=== PATIENT | male | born 1935 | race Caucasian/White ===

== ENCOUNTER 2019-07-31 17:36 | Inpatient (IN) | payer MEDICARE ==
[~2019-07-31] VITALS: Ht 170.2 cm; Wt 59.5 kg
[2019-07-31] MEDS: BUDESONIDE 0.5 MG/2 ML NEBU NEB SCH (08:00)
--- NOTE | 2019-07-31 17:48 | PHYS DOC ---
Adult General Chief Complaint Chief Complaint: PSYCH EVALUATION HPI HPI 84-year-old male presents for medical clearance for behavioral health admission. The patient was reported to be verbally abusive, combative, striking staff and agitated at his care facility. The patient has a history of Parkinson's and dementia. He does not express any medical complaints to me. No reported fevers. Review of Systems Review of Systems Constitutional: Denies fever or chills [] Eyes: Denies change in visual acuity, redness, or eye pain [] HENT: Denies nasal congestion or sore throat [] Respiratory: Denies cough or shortness of breath [] Cardiovascular: No additional information not addressed in HPI [] GI: Denies abdominal pain, nausea, vomiting, bloody stools or diarrhea [] : Denies dysuria or hematuria [] Musculoskeletal: Right foot pain[] Integument: Denies rash or skin lesions [] Neurologic: Denies headache, focal weakness or sensory changes [] Endocrine: Denies polyuria or polydipsia [] All other systems were reviewed and found to be within normal limits, except as documented in this note. Physical Exam Physical Exam Constitutional: Well developed, unkempt, no acute distress, non-toxic appearance. [] HENT: Normocephalic, atraumatic, bilateral external ears normal, oropharynx moist, no oral exudates, nose normal. [] Eyes: PERRLA, EOMI, conjunctiva normal, no discharge. [] Neck: Normal range of motion, no tenderness, supple, no stridor. [] Cardiovascular:Heart rate regular rhythm, no murmur [] Lungs & Thorax: Bilateral breath sounds diminished but clear to auscultation [] Abdomen: Bowel sounds normal, soft, no tenderness, no masses, no pulsatile masses. [] Skin: Warm, dry, no erythema, no rash. [] Back: No tenderness, no CVA tenderness. [] Extremities: Right foot with swelling, bruising, and tenderness dorsal side.[] Neurologic: Alert and oriented X 3, normal motor function, normal sensory function, no focal deficits noted. [] Psychologic: Affect normal, judgement normal, mood normal. : French catheter in place, slight bleeding at the meatus. [] EKG EKG Sinus rhythm, rate 83, normal axis, no ST elevations or depressions, 2 dropped QRS complexes.[] Radiology/Procedures Radiology/Procedures [] Impressions: 3 views right foot HISTORY: Bruising AP lateral oblique views right foot The visualized osseous structures appear normal. IMPRESSION: No acute findings. Electronically signed by: Rita Reynolds III, MD (07/31/2019 6:25 PM) [facility] DICTATED AND SIGNED BY: RITA REYNOLDS III, MD DATE: 07/31/19 182 CC: EDDI CALDERA DO; MARY WEN CT head without contrast PQRS statement: CT scans at this facility use dose reduction including either automated exposure control, iterative reconstructions, and /or weight based radiation dosing via mA and kV modification when appropriate to reduce radiation dose to as low as reasonably achievable. HISTORY: Fall. TECHNIQUE: Noncontrast imaging skull base to vertex was acquired. FINDINGS: Generalized brain atrophy. Ventriculomegaly likely ex vacuo enlargement from brain atrophy versus changes of normal pressure hydrocephalus. No obstructive hydrocephalus. No intracranial hemorrhage, mass or infarction. Mild cerebral periventricular white matter hypoattenuation most likely represents changes of chronic microvascular ischemic disease. Imaged orbits, mastoids, paranasal sinuses and bones are unremarkable. IMPRESSION: No acute abnormality. See discussion above. Electronically signed by: Zaira Ponce MD (07/31/2019 6:43 PM) [facility] DICTATED AND SIGNED BY: ZAIRA PONCE MD DATE: 07/31/19 184 CC: EDDI CALDERA DO; MARY WEN Course & Med Decision Making Course & Med Decision Making Pertinent Labs and Imaging studies reviewed. (See chart for details) The patient's French catheter was taped down very tightly to his left thigh. He has bleeding at the meatus. It was reported that the patient pulled his French out well-inflated a couple of days ago. This would explain the residual bleeding. I ordered an x-ray of the patient's foot. [facility] is also requests that we CT his head as the patient has a history of frequent falls. The patient's x-rays negative for fracture. It appears to be a contusion. Patient's head CT does not show acute findings. See official read for more details. His labs show a mild anemia. His other labs are unremarkable. His urinalysis is negative for infection. The patient is medically stable for behavioral health admission. [] Dragon Disclaimer Dragon Disclaimer This electronic medical record was generated, in whole or in part, using a voice recognition dictation system. Departure Departure: Impression: Primary Impression: Medical clearance for psychiatric admission Additional Impressions: Hematuria Contusion of foot, right Disposition: 09 ADMITTED INPATIENT Condition: STABLE Referrals: MARY WEN (PCP) Problem Qualifiers Additional Impressions: Hematuria Hematuria type: asymptomatic microscopic Qualified Codes: R31.21 - Asymptomatic microscopic hematuria Contusion of foot, right Encounter type: initial encounter Qualified Codes: S90.31XA - Contusion of right foot, initial encounter EDDI CALDERA DO Jul 31, 2019 17:48
[2019-07-31 18:14] LABS: BASO % 1 % (0-3); EOS # 0.1 x10^3/uL (0.0-0.7); EOS % 1 % (0-3); HEMATOCRIT 30.2 % (39.0-53.0); LYMPH # 0.5 x10^3/uL (1.0-4.8); LYMPH % 9 % (24-48); MEAN CORPUSCULAR HEMOGLOBIN 30 pg (25-35); MEAN CORPUSCULAR HGB CONC 33 g/dL (31-37); MEAN CORPUSCULAR VOLUME 91 fL (79-100); MONO # 0.5 x10^3/uL (0.0-1.1); MONO % 9 % (0-9); NEUT # 4.6 x10^3uL (1.8-7.7); NEUT % 81 % (31-73); PLATELET COUNT 176 x10^3/uL (140-400); RED BLOOD COUNT 3.34 x10^6/uL (4.30-5.70); RED CELL DISTRIBUTION WIDTH 13.8 % (11.5-14.5); WHITE BLOOD COUNT 5.7 x10^3/uL (4.0-11.0)
[2019-07-31 18:21] LABS: ALBUMIN 2.7 g/dL (3.4-5.0); ALBUMIN/GLOBULIN RATIO 0.8 (1.0-1.7); CALCIUM 8.6 mg/dL (8.5-10.1); GFR 71.5; MAGNESIUM 1.7 mg/dL (1.8-2.4); POTASSIUM 3.7 mmol/L (3.5-5.1); TOTAL BILIRUBIN 0.4 mg/dL (0.2-1.0); TOTAL PROTEIN 5.9 g/dL (6.4-8.2)
--- NOTE | 2019-07-31 18:28 | RAD ---
3 views right foot HISTORY: Bruising AP lateral oblique views right foot The visualized osseous structures appear normal. IMPRESSION: No acute findings. Electronically signed by: Sebastian Rasheed III, MD (07/31/2019 6:25 PM) [facility] [place]
[2019-07-31 18:38] LABS: BILIRUBIN,URINE SMALL (NEG); CLARITY,URINE TURBID; COLOR,URINE AMBER; GLUCOSE,URINE NEG (NEG)
[2019-07-31 18:39] LABS: BACTERIA,URINE FEW /HPF (0-FEW); NITRITE,URINE NEG (NEG); RBC,URINE >40 /HPF (0-2); UROBILINOGEN,URINE 1 mg/dL (0.2 mg/dL)
--- NOTE | 2019-07-31 18:46 | RAD ---
CT head without contrast PQRS statement: CT scans at this facility use dose reduction including either automated exposure control, iterative reconstructions, and /or weight based radiation dosing via mA and kV modification when appropriate to reduce radiation dose to as low as reasonably achievable. HISTORY: Fall. TECHNIQUE: Noncontrast imaging skull base to vertex was acquired. FINDINGS: Generalized brain atrophy. Ventriculomegaly likely ex vacuo enlargement from brain atrophy versus changes of normal pressure hydrocephalus. No obstructive hydrocephalus. No intracranial hemorrhage, mass or infarction. Mild cerebral periventricular white matter hypoattenuation most likely represents changes of chronic microvascular ischemic disease. Imaged orbits, mastoids, paranasal sinuses and bones are unremarkable. IMPRESSION: No acute abnormality. See discussion above. Electronically signed by: Brody Ponce MD (07/31/2019 6:43 PM) [facility]
[2019-07-31] MEDS ORDERED: MAGNESIUM HYDROXIDE 2,400 MG/30 ML ORAL.SUSP. PO PRN ×2 (20:30→22:00)
[2019-07-31] MEDS ORDERED: ACETAMINOPHEN 325 MG TABLET PO PRN (20:30)
[2019-07-31] MEDS ORDERED: MAG HYDROX/AL HYDROX/SIMETH 30 ML ORAL.SUSP PO PRN (20:30)
[2019-07-31] MEDS ORDERED: BUDESONIDE 0.5 MG/2 ML NEBU IH SCH (21:00)
[2019-07-31] MEDS ORDERED: BALSAM PERU TP PRN (21:00)
[2019-07-31] MEDS ORDERED: MELATONIN 3 MG TABLET PO SCH (21:00)
[2019-07-31] MEDS ORDERED: CASTOR OIL TP PRN (21:00)
[2019-07-31] MEDS ORDERED: NITROGLYCERIN SUBLINGUAL 0.4 MG BOTTLE OF 25. SL PRN (21:00)
[2019-07-31] MEDS ORDERED: ALBUTEROL SULFATE 2.5 MG/3 ML NEBU. IH PRN (21:00)
[2019-07-31] MEDS ORDERED: NON FORMULARY ITEM (Formoterol Fumarate (Perforomist) 20 MCG) IH SCH (21:00)
[2019-07-31 21:23] VITALS: BP 139/58
[2019-07-31] MEDS ORDERED: NITR0.4T22 SL (21:30)
[2019-07-31] MEDS ORDERED: CITA20TA9 PO (21:30)
[2019-07-31] MEDS ORDERED: OLAN5TAB9 PO (21:30)
[2019-07-31] MEDS ORDERED: CARB1TAB2 PO (21:30)
[2019-07-31] MEDS ORDERED: BUDE0.5A11 IH (21:30)
[2019-07-31] MEDS ORDERED: OMEP40CA45 PO (21:30)
[2019-07-31] MEDS ORDERED: CALC-157 PO (21:30)
[2019-07-31] MEDS ORDERED: MELA3TAB56 PO (21:30)
[2019-07-31] MEDS ORDERED: METO25TA4 PO (21:30)
[2019-07-31] MEDS ORDERED: TAMS0.4C97 PO (21:30)
[2019-07-31] MEDS ORDERED: BUDE3CAP15 PO (21:30)
[2019-07-31] MEDS ORDERED: MULT-460 PO (21:30)
[2019-07-31] MEDS ORDERED: POLY2500 PO (21:30)
[2019-07-31] MEDS ORDERED: ACET500T68 PO (21:30)
[2019-07-31] MEDS ORDERED: SUCR1TAB PO (21:30)
[2019-07-31] MEDS ORDERED: FISH12002 PO (21:30)
[2019-07-31] MEDS ORDERED: FORM20VI IH (21:30)
[2019-07-31] MEDS ORDERED: ASPI325T8 PO (21:30)
[2019-07-31] MEDS ORDERED: GLUC100016 PO (21:30)
[2019-07-31] MEDS ORDERED: OLAN5TAB5 PO (21:30)
[2019-07-31] MEDS ORDERED: NITR100C62 PO (21:30)
[2019-07-31] MEDS ORDERED: BALS60OI TP (21:30)
[2019-07-31] MEDS ORDERED: ALBU2.5V8 IH (21:30)
[2019-07-31] MEDS ORDERED: MAGN2400 PO (21:30)
[2019-07-31] MEDS ORDERED: LEVE500T6 PO (21:30)
[2019-08-01] MEDS: NITROFURANTOIN MONOHYD/M-CRYST 100 MG CAPSULE. PO SCH ×3 (00:14→19:43)
[2019-08-01] MEDS: OLANZapine 5 MG TABLET PO SCH ×2 (00:14→19:43)
[2019-08-01] MEDS: CARBIDOPA/LEVODOPA 25/100MG TABLET PO SCH ×5 (00:15→19:43)
[2019-08-01] MEDS: METOPROLOL TART IMMED RELEASE 25 MG TABLET PO SCH ×3 (00:15→19:43)
[2019-08-01] MEDS: SUCRALFATE 1 GM TABLET. PO SCH ×5 (00:15→19:41)
[2019-08-01] MEDS: levETIRAcetam 500 MG TABLET PO SCH ×3 (00:15→19:41)
[2019-08-01] MEDS: TAMSULOSIN 0.4 MG CAP.ER.24H. PO SCH ×2 (00:16→19:41)
[2019-08-01] MEDS: MELATONIN 3 MG TABLET PO SCH ×2 (00:16→19:43)
[2019-08-01 06:17] VITALS: BP 143/67
[2019-08-01] MEDS: BUDESONIDE 0.5 MG/2 ML NEBU NEB SCH (08:00)
[2019-08-01] MEDS ORDERED: POLYETHYLENE GLYCOL 3350 17 GM PACKET. PO PRN (09:00)
[2019-08-01] MEDS ORDERED: BUDESONIDE 3 MG CAP.ER.24H. PO SCH ×2 (09:00)
[2019-08-01] MEDS: ASPIRIN 325 MG TABLET PO SCH (09:18)
[2019-08-01] MEDS: MULTIVITAMIN with MINERAL TABLET. PO SCH (09:19)
[2019-08-01] MEDS: CITALOPRAM 20 MG TABLET. PO SCH (09:19)
[2019-08-01] MEDS: CALCIUM CARB/VIT D3 500/200 TABLET PO SCH (09:19)
[2019-08-01] MEDS: OMEGA-3 FATTY ACIDS/FISH OIL 1,000 MG CAPSULE. PO SCH (09:19)
[2019-08-01] MEDS: PANTOPRAZOLE 40 MG TABLET. PO SCH (09:20)
[2019-08-01] MEDS: GLUCOSAMINE 500 MG CAPSULE PO SCH (09:20)
[2019-08-01] MEDS: BUDESONIDE 3 MG CAP.ER.24H. PO SCH (10:55)
[2019-08-01 13:21] LABS: THYROID STIM HORMONE (TSH) 0.476 uIU/mL (0.358-3.740)
[2019-08-01 16:13] VITALS: BP 89/51
[2019-08-01 20:07] LABS: THYROXINE 4.8 ug/dL (4.5-12.0)
[2019-08-01 23:06] LABS: HEMOGLOBIN A1C 5.1 % (4.8-5.6)
[2019-08-02] MEDS: BUDESONIDE 0.5 MG/2 ML NEBU NEB SCH ×3 (01:03→21:39)
[2019-08-02 05:55] VITALS: BP 141/76
[2019-08-02] MEDS: SUCRALFATE 1 GM TABLET. PO SCH ×4 (07:55→20:15)
[2019-08-02] MEDS: CALCIUM CARB/VIT D3 500/200 TABLET PO SCH (07:55)
[2019-08-02] MEDS: levETIRAcetam 500 MG TABLET PO SCH ×2 (07:55→20:15)
[2019-08-02] MEDS: PANTOPRAZOLE 40 MG TABLET. PO SCH (07:56)
[2019-08-02] MEDS: OMEGA-3 FATTY ACIDS/FISH OIL 1,000 MG CAPSULE. PO SCH (07:56)
[2019-08-02] MEDS: METOPROLOL TART IMMED RELEASE 25 MG TABLET PO SCH ×2 (07:56→20:16)
[2019-08-02] MEDS: NITROFURANTOIN MONOHYD/M-CRYST 100 MG CAPSULE. PO SCH ×2 (07:56→20:16)
[2019-08-02] MEDS: GLUCOSAMINE 500 MG CAPSULE PO SCH (07:56)
[2019-08-02] MEDS: MULTIVITAMIN with MINERAL TABLET. PO SCH (07:56)
[2019-08-02] MEDS: CITALOPRAM 20 MG TABLET. PO SCH (07:56)
[2019-08-02] MEDS: CARBIDOPA/LEVODOPA 25/100MG TABLET PO SCH ×4 (07:56→20:16)
[2019-08-02] MEDS: ASPIRIN 325 MG TABLET PO SCH (07:56)
[2019-08-02] MEDS: BUDESONIDE 3 MG CAP.ER.24H. PO SCH (08:03)
--- NOTE | 2019-08-02 08:18 | PSYEV ---
DATE OF SERVICE: 08/01/2019 REASON FOR ADMISSION: This 84-year-old male was admitted from [facility] in [place] because being verbally abusive, combative, grabbing staff, cursing, refusing care and difficult to manage at the longterm setting. The patient apparently tried on medications with no benefit. The patient also has multiple physical problems including Parkinson's disease. HISTORY OF PRESENT ILLNESS: The patient has been having problems with increased confusion. The patient also on French catheter and trying to pull it constantly, also fluctuating mood, is combative. The patient had problems communicating, not able to verbalize his needs. On according to the staff, patient had major problems at the longterm and also he failed outpatient treatment. The patient also unable to communicate mostly word salad. The patient was sent here mainly for stabilization and medication adjustment. The patient also not taking care of his ADL and not sleeping and also not eating well. PAST PSYCHIATRIC HISTORY: None available except that he was treated with medications including Celexa 20 mg daily and also melatonin 10 mg at night. PAST MEDICAL HISTORY: The patient has a history of Parkinson's disease, chronic insomnia, COPD, dysphagia, hyperlipidemia, hypertension, falls, emphysema, asthma, GERD and also coronary artery disease. PSYCHOSOCIAL HISTORY: The patient has been a resident at [facility], unable to give much information at this time. Try to contact the family. financial services assistant will try to talk with the family. The patient's primary care physician is Dr. Alves. The patient apparently worked at [employer] from 07/10/2019 to 07/19/2019. The patient's current lab showed RBC of 3.34, hemoglobin 10, HCT 30.2, neutrophils 81. The patient's BUN 24, glucose 149. The patient's serum iron low at 16, TIBC 188, and iron saturation 9. The patient's cholesterol was 139, triglycerides 45, HDL 40, LDL 88. The patient's urinalysis showed protein, small amounts of bilirubin, 11-20 wbc's. SUBSTANCE ABUSE: The patient is unable to give much information. Apparently, there is no mention of any alcoholism from the information we gathered. MENTAL STATUS EXAMINATION: The patient appeared to be of stated age, withdrawn, unable to walk. The patient also had difficulty with communication. The patient has significant problems with the speech impediment. The patient is confused also exhibiting increased psychomotor agitation. The patient is constantly moving, thrashing, trying to pull the tubing of his phallus. The patient also did not sleep well. The patient's affect and mood showed he is irritable, kitchen, indifferent, not able to comprehend, also hearing loss. He is disoriented to time, place, person. His memory is not testable. His judgment is impaired. Insight limited. STRENGTHS: The patient apparently has been a resident at the longterm. The patient has a primary care physician. WEAKNESSES: The patient has fairly advanced dementia, most likely secondary to Parkinson's and there is no history of any CVA. The clean up person for the patient is the daughter and we will try to get more information. ADMITTING DIAGNOSES: AXIS I: 1. Dementia, most likely secondary to Parkinson's, fairly advanced with confusion, agitation and significant decline in his executive functioning. 2. Generalized anxiety disorder. 3. Impulse control disorder. AXIS II: None. AXIS III: Parkinson's disease, chronic obstructive pulmonary disease, dysphagia, hyperlipidemia, constipation, hypertension, frequent falls, emphysema, asthma, gastroesophageal reflux disease. INITIAL TREATMENT PLAN: The patient will be admitted to the unit to be followed up by the psychiatrist on daily basis and also the patient will be followed by Dr. Smallwood for his medical issues. The patient will be under observation. The patient is also on fall risk. Continue on his Celexa 20 mg daily, melatonin 10 mg at night and started on Zyprexa 5 mg at night and also 2.5 mg p.r.n. LENGTH OF STAY: 7-10 days. GARCIA HINTON MD DR: CHARISSA/eva JOB#: [id number] / [id number]
--- NOTE | 2019-08-02 12:45 | RAD ---
Bilateral lower extremity venous duplex study 08/02/2019 8:00 AM Clinical History: Bilateral lower extremity edema Comparison: None Technique: Using a combination of real time ultrasound imaging and color-flow and pulse Doppler imaging techniques along with graded compression and augmentation, duplex evaluation of the deep venous system of the both lower extremities was performed. Multiple images were obtained. Findings: There is no sonographic evidence of deep venous thrombosis involving the visualized deep venous structures of either lower extremity. Impression: No evidence of deep venous thrombosis involving either lower extremity Electronically signed by: Phu Moreira MD (08/02/2019 12:41 PM) [facility]
--- NOTE | 2019-08-02 15:45 | RAD ---
Whole body bone scan Clinical indications: Multiple falls and bruising over the right foot. TECHNIQUE: After IV infusion of 24 mCi of technetium 99m MDP, anterior and posterior planar images of the whole skeleton were performed. Dedicated planar images of both feet were performed. COMPARISON: No previous bone scan. FINDINGS: Bilateral renal function is evident. There is uptake involving the posterior medial aspect of the left ninth and 10th ribs at the costovertebral junction. There is activity seen involving the right lateral aspect of the cervical spine and typically lateral location most likely is degenerative. There is activity seen involving the lateral aspect of the lower lumbar spine in the region of L4-5 on the right side which given it's lateral location most likely is degenerative in nature as well. Degenerative activity is seen involving the sternoclavicular joints and the AC joints bilaterally. There is mild activity seen involving the lateral humeral head bilaterally which could be due to chronic impingement. There is mild activity seen involving the right proximal tibia. There is no significant activity seen involving either foot to indicate an acute fracture. IMPRESSION: Fractures of the posterior medial aspect of the left ninth and 10th ribs at the costovertebral junction. Asymmetric activity is seen involving the proximal right tibia which could be due to stress fracture. Degenerative activity as discussed above most likely is degenerative in nature. Activity seen involving the lateral aspect of the humeral head of both shoulders may be secondary to impingement. Electronically signed by: Justin Pulliam MD (08/02/2019 3:42 PM) [facility]
--- NOTE | 2019-08-02 15:46 | CONS ---
DATE OF CONSULTATION: 08/01/2019 REASON FOR CONSULTATION: Medical management. HISTORY OF PRESENT ILLNESS: The patient is an 84-year-old male patient, a resident at [facility], who was admitted on account of being verbally abusive, combative, grabbing at staff, cursing, refusing cares, agitated, all this in a background of dementia with behavioral disturbances. He was here for inpatient psychiatric stabilization. The patient is extremely hard of hearing and difficulty to communicate with. PAST MEDICAL HISTORY: Significant for Parkinson's disease, chronic obstructive pulmonary disease, dysphagia, hyperlipidemia, chronic constipation, hypertension, falls, gastroesophageal reflux disease, and heart disease. PAST SURGICAL HISTORY: Unobtainable. ALLERGIES: He is allergic to MELOXICAM, SIMVASTATIN and TAMSULOSIN. MEDICATIONS: He is currently on following medications: He is on nitrofurantoin, Macrobid 100 mg p.o. b.i.d., albuterol sulfate for ProAir 2 puffs every 6 hours, formoterol fumarate for 220 mcg per 2 mL vial 20 mcg twice a day. Tamsulosin 0.4 mg at bedtime, nitroglycerin 0.4 mg sublingually every 5 minutes x 3, metoprolol tartrate 25 mg p.o. b.i.d., aspirin 325 mg once a day, Tylenol 1000 mg p.o. q. 6 hourly, Keppra 500 mg twice a day, citalopram hydrobromide 20 mg once a day, olanzapine 5 mg at bedtime. He is on olanzapine 2.5 mg every 2 hours as needed for anxiety and agitation, carbidopa/levodopa 25/100 one tablet 4 times a day, calcium carbonate with vitamin D3 one tablet daily. He is on budesonide 0.5 mg twice a day, magnesium hydroxide for milk of magnesia 30 mL p.o. daily p.r.n. for constipation, sucralfate 1 gram 4 times a day, omeprazole 40 mg daily, Entocort 9 mg p.o. daily for COPD in a tapering course. He is on Venelex ointment 60 grams apply topically twice a day for dry skin and multivitamin with mineral 1 tablet once a day, fish oil for omega-3 fatty acid 3000 mg once a day, glucosamine sulfate 500 mg daily, melatonin 5 mg at bedtime and polyethylene glycol 17 grams daily. FAMILY HISTORY: Noncontributory. SOCIAL HISTORY: He is a resident at [facility]. I do not have any further information about him. PHYSICAL EXAMINATION: GENERAL: When I examined him, he was sitting comfortably in his wheelchair, in no apparent respiratory distress. He was awake, alert, but extremely hard of hearing and also very confused. He was pale, no jaundice, cyanosis or thyromegaly. No jugular venous distention, but marked bilateral lower limb edema with marked bruises on the right foot. VITAL SIGNS: His heart rate was 63, blood pressure was 89/51, temperature was 98.1, respiratory rate was 18 and oxygen saturation was 93%. HEAD, EYES, EARS, NOSE AND THROAT: Showed normocephalic, atraumatic. NECK: Supple. HEART: Showed normal first and second heart sounds. No gallop or murmur. CHEST: Shows central trachea, equally reduced expansion and air entry. I could not appreciate any crepitation or rhonchi. ABDOMEN: Distended, soft, nontender. No guarding or rigidity. No organomegaly. All hernial orifice intact. Bowel sounds normal. NEUROLOGIC: He is extremely hard of hearing, but all his other cranial nerves are intact. EXTREMITIES: He moves extremities without difficulty. He is apparently mostly wheelchair bound, although he is able to walk. LABORATORY DATA: On admission showed his white cell count was 5700, hemoglobin 10, hematocrit 30, MCV 91, and platelet count of 176,000 with normal manual differential. His chemistry showed a serum sodium 143, potassium 3.7, chloride 105, bicarbonate 32, anion gap of 6, BUN 24, creatinine 1, estimated GFR was 71 mL per minute. His glucose 149, calcium was 8.6. Total magnesium was 1.7. Serum iron, TIBC and iron saturation are all extremely low consistent with anemia of chronic disease. Total bilirubin, AST, ALT, alkaline phosphatase were normal. Total protein was 5.9, albumin was 2.7. His serum triglycerides were 45, total cholesterol 139, LDL was 88, VLDL was 9, HDL cholesterol was 42 and cholesterol to HDL cholesterol ratio was 3. His 25-hydroxy vitamin D was normal at 34 and TSH was also at 0.476, which is the lower limit of normal. His urinalysis showed the urine was maribeth, turbid with a pH of 6, specific gravity of more than 1.030. There was large amount of protein, negative for glucose, trace of ketones, large amount of blood, negative for nitrite. There was small amount of bilirubin, negative leukocyte esterase, more than 40 rbc's, 11-20 wbc's, and very few bacteria. His treponema pallidum antibodies were nonreactive. His CT scan of the head showed generalized brain atrophy, ventriculomegaly, likely ex-vacuo enlargement from the brain atrophy versus change of normal pressure hydrocephalus and obstructive hydrocephalus. No intracranial hemorrhage, mass, or infarction, mild cerebral periventricular white matter hypoattenuation, most likely represents changes of chronic microvascular ischemic disease. Imaged orbits, mastoids, paranasal sinuses and bones are unremarkable, has had lateral and oblique views of the right foot, which showed that the visualized osseous structures appears normal. Given the degree of swelling and ecchymosis, I will arrange for him to have bone scan to rule out any possibility of fracture. In summary, this is an 84-year-old male patient who is a resident at [facility], who was admitted on account of being verbally abusive, combative, grabbing at staff, cursing, refusing cares, agitated, all this in a background of dementia with behavioral disturbances. He has numerous medical problems including Parkinson's disease, COPD, dysphagia, hyperlipidemia, constipation, hypertension and gastroesophageal reflux disease. His both lower extremities are markedly swollen with marked bruises on the dorsum of the right foot, raising the possibility that he might have subtle fracture. His lab works seems all to be within acceptable range. I will arrange for him to have a bone scan and also bilateral venous Doppler ultrasound and decide on further management accordingly. Thank you, Dr. Fernando for allowing me to participate in the care of this patient. AD SOTO MD DR: ZIABELA/eva JOB#: [id number] / [id number]
[2019-08-02 16:56] VITALS: BP 112/56
[2019-08-02] MEDS: TAMSULOSIN 0.4 MG CAP.ER.24H. PO SCH (20:15)
[2019-08-02] MEDS: MELATONIN 3 MG TABLET PO SCH (20:16)
[2019-08-02] MEDS: OLANZapine 5 MG TABLET PO SCH (20:16)
--- NOTE | 2019-08-03 04:34 | PN ---
DATE: 08/02/2019 SUBJECTIVE: The patient was seen today, met with the staff, chart reviewed. The patient is still restless, orofacial involuntary movements, significant hearing loss and also having increased agitation and fluctuating mood. The patient also resistive to care. OBSERVATION: VITAL SIGNS: Temperature 97.6, blood pressure 141/76, pulse 79, respirations 20, O2 sat 96%. Slept only about 3 hours last night. The patient apparently has cellulitis of the right foot. The patient apparently has been receiving p.r.n. medications because of his agitation and also difficult to manage. LABORATORY DATA: The patient's lab reviewed. MEDICATIONS: The patient's current medication includes Celexa 20 mg daily p.o., melatonin 10 mg at night, olanzapine 5 mg at night. The patient is not having any side effects. ASSESSMENT: 1. Dementia, most likely secondary to Parkinson's fairly advanced with confusion, agitation and significant decline ____ functioning. 2. Generalized anxiety disorder. 3. Impulse control disorder. PLAN: Continue with the treatment. GARCIA HINTON MD DR: CHARISSA/eva JOB#: [id number] / [id number]
[2019-08-03 05:11] VITALS: BP 176/83
[2019-08-03] MEDS: GLUCOSAMINE 500 MG CAPSULE PO SCH (08:35)
[2019-08-03] MEDS: METOPROLOL TART IMMED RELEASE 25 MG TABLET PO SCH ×2 (08:35→19:46)
[2019-08-03] MEDS: levETIRAcetam 500 MG TABLET PO SCH ×2 (08:35→19:46)
[2019-08-03] MEDS: CITALOPRAM 20 MG TABLET. PO SCH (08:35)
[2019-08-03] MEDS: NITROFURANTOIN MONOHYD/M-CRYST 100 MG CAPSULE. PO SCH (08:35)
[2019-08-03] MEDS: PANTOPRAZOLE 40 MG TABLET. PO SCH (08:35)
[2019-08-03] MEDS: OMEGA-3 FATTY ACIDS/FISH OIL 1,000 MG CAPSULE. PO SCH (08:36)
[2019-08-03] MEDS: BUDESONIDE 3 MG CAP.ER.24H. PO SCH (08:36)
[2019-08-03] MEDS: ASPIRIN 325 MG TABLET PO SCH (08:36)
[2019-08-03] MEDS: CARBIDOPA/LEVODOPA 25/100MG TABLET PO SCH ×4 (08:36→19:46)
[2019-08-03] MEDS: CALCIUM CARB/VIT D3 500/200 TABLET PO SCH (08:36)
[2019-08-03] MEDS: MULTIVITAMIN with MINERAL TABLET. PO SCH (08:36)
[2019-08-03] MEDS: SUCRALFATE 1 GM TABLET. PO SCH ×4 (08:37→19:46)
[2019-08-03] MEDS ORDERED: BUDESONIDE 3 MG CAP.ER.24H. PO SCH (09:00)
[2019-08-03] MEDS: BUDESONIDE 0.5 MG/2 ML NEBU NEB SCH ×2 (10:59→19:59)
[2019-08-03 15:43] VITALS: BP 139/56
[2019-08-03] MEDS: OLANZapine 5 MG TABLET PO SCH (19:46)
[2019-08-03] MEDS: TAMSULOSIN 0.4 MG CAP.ER.24H. PO SCH (19:46)
[2019-08-03] MEDS: MELATONIN 3 MG TABLET PO SCH (19:47)
--- NOTE | 2019-08-03 22:29 | EKG ---
[address] [address] Test Date: 2019-07-31 Test Time: 18:21:20 Pat Name: TI GARZA Department: Room: [address] [place] [address] Gender: M Table Worker Packager: RAFFY : [id number] Requested By: EDDI CALDERA Order Number: [id number] Reading MD: Henry Cates MD Measurements Intervals [place] Rate: 83 P: VA: QRS: -58 QRSD: 106 T: 92 QT: 426 QTc: 501 Interpretive Statements SR CONSIDER MOBITZ TYPE 2 VERSUS TRANSIENT AVB Electronically Signed On 08-06-2019 15:39:31 CDT by Henry Cates MD
[2019-08-04 07:11] VITALS: BP 154/45
[2019-08-04] MEDS: CITALOPRAM 20 MG TABLET. PO SCH (08:10)
[2019-08-04] MEDS: GLUCOSAMINE 500 MG CAPSULE PO SCH (08:10)
[2019-08-04] MEDS: CARBIDOPA/LEVODOPA 25/100MG TABLET PO SCH ×4 (08:10→20:13)
[2019-08-04] MEDS: MULTIVITAMIN with MINERAL TABLET. PO SCH (08:10)
[2019-08-04] MEDS: ASPIRIN 325 MG TABLET PO SCH (08:10)
[2019-08-04] MEDS: levETIRAcetam 500 MG TABLET PO SCH ×2 (08:10→20:14)
[2019-08-04] MEDS: METOPROLOL TART IMMED RELEASE 25 MG TABLET PO SCH ×2 (08:10→20:13)
[2019-08-04] MEDS: PANTOPRAZOLE 40 MG TABLET. PO SCH (08:10)
[2019-08-04] MEDS: CALCIUM CARB/VIT D3 500/200 TABLET PO SCH (08:10)
[2019-08-04] MEDS: SUCRALFATE 1 GM TABLET. PO SCH ×4 (08:10→20:14)
[2019-08-04] MEDS: BUDESONIDE 3 MG CAP.ER.24H. PO SCH (08:11)
[2019-08-04] MEDS: BUDESONIDE 0.5 MG/2 ML NEBU NEB SCH (11:11)
[2019-08-04 15:40] VITALS: BP 113/67
--- NOTE | 2019-08-04 16:28 | PN ---
DATE: 08/04/2019 SUBJECTIVE: The patient was seen today, met with the staff, chart reviewed. The patient continues to have problems with increased psychomotor agitation, restlessness, trying to get off the bed and the chair. The patient is confused, difficult to redirect. The patient is also exhibiting poor impulse control, low frustration tolerance. OBSERVATION: VITAL SIGNS: Temperature 97.6, blood pressure 154/45, pulse is 70, respirations 16, and O2 sat 97%. GENERAL: Slept about 6 hours the last night. CURRENT MEDICATIONS: Include Celexa 20 mg daily, melatonin 10 mg at night, and olanzapine 5 mg at night. The patient is not showing any side effects. The patient's appetite is decreased. ASSESSMENT: Dementia, most likely secondary to Parkinson's, fairly advanced with confusion, agitation, and significant decline in his level of functioning. PLAN: To continue with the treatment. GARCIA HINTON MD DR: CHARISSA/eva JOB#: [id number] / [id number]
[2019-08-04] MEDS: OLANZapine 5 MG TABLET PO SCH (20:13)
[2019-08-04] MEDS: TAMSULOSIN 0.4 MG CAP.ER.24H. PO SCH (20:13)
[2019-08-04] MEDS: MELATONIN 3 MG TABLET PO SCH (20:14)
[2019-08-05] MEDS: BUDESONIDE 0.5 MG/2 ML NEBU NEB SCH ×2 (01:13→10:21)
[2019-08-05] MEDS: SUCRALFATE 1 GM TABLET. PO SCH ×4 (08:39→21:11)
[2019-08-05] MEDS: METOPROLOL TART IMMED RELEASE 25 MG TABLET PO SCH ×2 (08:39→21:11)
[2019-08-05] MEDS: levETIRAcetam 500 MG TABLET PO SCH ×2 (08:39→21:12)
[2019-08-05] MEDS: MULTIVITAMIN with MINERAL TABLET. PO SCH (08:39)
[2019-08-05] MEDS: ASPIRIN 325 MG TABLET PO SCH (08:39)
[2019-08-05] MEDS: CITALOPRAM 20 MG TABLET. PO SCH (08:39)
[2019-08-05] MEDS: GLUCOSAMINE 500 MG CAPSULE PO SCH (08:39)
[2019-08-05] MEDS: CARBIDOPA/LEVODOPA 25/100MG TABLET PO SCH ×4 (08:39→21:10)
[2019-08-05] MEDS: CALCIUM CARB/VIT D3 500/200 TABLET PO SCH (08:40)
[2019-08-05] MEDS: BUDESONIDE 3 MG CAP.ER.24H. PO SCH (08:40)
[2019-08-05] MEDS: PANTOPRAZOLE 40 MG TABLET. PO SCH (08:40)
[2019-08-05 16:16] VITALS: BP 134/59
[2019-08-05] MEDS: MIRTAZAPINE 7.5 MG TABLET. PO SCH (21:11)
[2019-08-05] MEDS: MELATONIN 3 MG TABLET PO SCH ×2 (21:11→21:13)
[2019-08-05] MEDS: OLANZapine 5 MG TABLET PO SCH (21:11)
[2019-08-05] MEDS: TAMSULOSIN 0.4 MG CAP.ER.24H. PO SCH (21:12)
--- NOTE | 2019-08-05 21:49 | PDOC ---
Exam Note: Anjel Note: Please also refer to the separate dictated note~for this date of service dictated separately.~Patient seen individually. Discussed the patient with Nursing staff reviewed the chart.~Reviewed interim history and current functioning. Reviewed vital signs,~Labs/ Radiology~and current medications noted below. Continue current treatment with the changes noted in the dictated addendum note Assessment: Vital Signs/I&O: Vital Signs Date Time Temp Pulse Resp B/P (MAP) Pulse Ox O2 Delivery O2 Flow Rate FiO2 08/05/19 21:11 62 134/59 08/05/19 20:50 96 Room Air 08/05/19 16:16 98.1 16 08/03/19 15:43 0.0 I & O 08/04/19 08/04/19 08/05/19 15:00 23:00 07:00 Intake Total 840 ml 580 ml Balance 840 ml 580 ml Current Medications: Meds: Current Medications Medications (Trade) Dose Ordered Sig/Gina Route PRN Reason Start Time Stop Time Status Last Admin Dose Admin Melatonin (Melatonin) 5 mg HS PO 08/05/19 19:15 08/05/19 21:13 Mirtazapine (Remeron) 7.5 mg QHS PO 08/05/19 21:00 08/05/19 21:11 I have reviewed the current psychotropics carefully including drug interactions. Risk benefit ratio favors no change other than as noted in my dictated progress note. Diagnosis: Problems: (1) Hematuria (2) Contusion of foot, right (3) Medical clearance for psychiatric admission ANEL VALLES MD Aug 05, 2019 21:49
[2019-08-06] MEDS: BUDESONIDE 0.5 MG/2 ML NEBU NEB SCH ×4 (00:15→20:14)
[2019-08-06 06:28] VITALS: BP 147/71
[2019-08-06] MEDS: METOPROLOL TART IMMED RELEASE 25 MG TABLET PO SCH ×2 (07:33→21:06)
[2019-08-06] MEDS: ASPIRIN 325 MG TABLET PO SCH (07:33)
[2019-08-06] MEDS: CITALOPRAM 20 MG TABLET. PO SCH (07:33)
[2019-08-06] MEDS: CARBIDOPA/LEVODOPA 25/100MG TABLET PO SCH ×4 (07:33→21:06)
[2019-08-06] MEDS: GLUCOSAMINE 500 MG CAPSULE PO SCH (07:33)
[2019-08-06] MEDS: levETIRAcetam 500 MG TABLET PO SCH ×2 (07:33→21:06)
[2019-08-06] MEDS: PANTOPRAZOLE 40 MG TABLET. PO SCH (07:34)
[2019-08-06] MEDS: SUCRALFATE 1 GM TABLET. PO SCH ×4 (07:34→21:07)
[2019-08-06] MEDS: CALCIUM CARB/VIT D3 500/200 TABLET PO SCH (07:34)
[2019-08-06] MEDS: MULTIVITAMIN with MINERAL TABLET. PO SCH (07:34)
[2019-08-06] MEDS: BUDESONIDE 3 MG CAP.ER.24H. PO SCH (07:35)
[2019-08-06 15:54] VITALS: BP 133/61
[2019-08-06] MEDS: QUEtiapine 25 MG TABLET. PO SCH (17:25)
--- NOTE | 2019-08-06 18:54 | PN ---
DATE: 08/05/2019 PSYCHIATRIC PROGRESS NOTE This late entry of 08/05/2019 covers elements not covered in my initial note. SUBJECTIVE: I met with the patient in the evening of 08/05/2019. Reviewed information from Dr. Resendiz who covered for me over the past 1 week. The patient slept 2 hours previous night. He is wearing a blue shirt in a wheelchair with a busy board in front of him, anxious, restless, trying to get up, more so in the afternoon, little calmer in the morning. REVIEW OF SYSTEMS: He is not forthcoming due to his dementia, but ambulation impaired, in wheelchair. No CV, , pulmonary, eye, ENT system symptoms on review. Reliability poor. MENTAL STATUS EXAM: Oriented to himself. Insight, judgment, recent and remote memory, attention, concentration, fund of knowledge poor, consistent with his diagnosis. IMPRESSION: Major neurocognitive disorder; Alzheimer's, vascular with delusion, depression, behavioral disturbance; anxiety disorder, unspecified; impulse control disorder, unspecified. PLAN: Reduce melatonin from 10 mg at bedtime down to 5 mg at bedtime. Start Remeron 7.5 mg at bedtime for his significant insomnia. Start Seroquel 12.5 mg at 5 p.m. since the agitation, restlessness increases in the evening. Maintain Celexa 20 mg a day. Rest unchanged for now. MAN Tegan VALLES MD DR: STEVE/eva JOB#: [id number] / [id number]
[2019-08-06] MEDS: OLANZapine 5 MG TABLET PO SCH (21:06)
[2019-08-06] MEDS: MIRTAZAPINE 7.5 MG TABLET. PO SCH (21:06)
[2019-08-06] MEDS: MELATONIN 3 MG TABLET PO SCH (21:06)
[2019-08-06] MEDS: TAMSULOSIN 0.4 MG CAP.ER.24H. PO SCH (21:06)
--- NOTE | 2019-08-06 21:47 | PDOC ---
Exam Note: Anjel Note: Please also refer to the separate dictated note~for this date of service dictated separately.~Patient seen individually. Discussed the patient with Nursing staff reviewed the chart.~Reviewed interim history and current functioning. Reviewed vital signs,~Labs/ Radiology~and current medications noted below. Continue current treatment with the changes noted in the dictated addendum note Assessment: Vital Signs/I&O: Vital Signs Date Time Temp Pulse Resp B/P (MAP) Pulse Ox O2 Delivery O2 Flow Rate FiO2 08/06/19 21:06 80 133/61 08/06/19 20:14 96 Room Air 08/06/19 15:54 98.0 20 08/03/19 15:43 0.0 I & O 08/05/19 08/05/19 08/06/19 14:59 22:59 06:59 Intake Total 600 ml 240 ml 120 ml Output Total 500 ml Balance 600 ml 240 ml -380 ml Current Medications: Meds: Current Medications Medications (Trade) Dose Ordered Sig/Gina Route PRN Reason Start Time Stop Time Status Last Admin Dose Admin Quetiapine Fumarate (SEROquel) 12.5 mg DAILYWSUP PO 08/06/19 17:00 08/06/19 17:25 I have reviewed the current psychotropics carefully including drug interactions. Risk benefit ratio favors no change other than as noted in my dictated progress note. Diagnosis: Problems: (1) Impulse control disorder (2) Anxiety disorder (3) Vascular dementia with behavior disturbance (4) Vascular dementia with behavioral disturbance (5) Dementia in Alzheimer's disease with delusions (6) Dementia in Alzheimer's disease with depression (7) Dementia of the Alzheimer's type with early onset with behavioral disturbance (8) Major neurocognitive disorder ANEL VALLES MD Aug 06, 2019 21:47
[2019-08-07 05:38] VITALS: BP 145/81
[2019-08-07] MEDS: BUDESONIDE 3 MG CAP.ER.24H. PO SCH (09:00)
[2019-08-07] MEDS: MULTIVITAMIN with MINERAL TABLET. PO SCH (09:01)
[2019-08-07] MEDS: SUCRALFATE 1 GM TABLET. PO SCH ×4 (09:01→21:31)
[2019-08-07] MEDS: CARBIDOPA/LEVODOPA 25/100MG TABLET PO SCH ×4 (09:01→21:32)
[2019-08-07] MEDS: ASPIRIN 325 MG TABLET PO SCH (09:01)
[2019-08-07] MEDS: GLUCOSAMINE 500 MG CAPSULE PO SCH (09:01)
[2019-08-07] MEDS: METOPROLOL TART IMMED RELEASE 25 MG TABLET PO SCH ×2 (09:01→21:32)
[2019-08-07] MEDS: PANTOPRAZOLE 40 MG TABLET. PO SCH (09:01)
[2019-08-07] MEDS: CITALOPRAM 20 MG TABLET. PO SCH (09:01)
[2019-08-07] MEDS: CALCIUM CARB/VIT D3 500/200 TABLET PO SCH (09:01)
[2019-08-07] MEDS: levETIRAcetam 500 MG TABLET PO SCH ×2 (09:01→21:32)
[2019-08-07] MEDS: BUDESONIDE 0.5 MG/2 ML NEBU NEB SCH ×2 (09:46→21:41)
[2019-08-07 16:56] VITALS: BP 135/67
[2019-08-07] MEDS: QUEtiapine 25 MG TABLET. PO SCH (17:27)
[2019-08-07] MEDS: OLANZapine 5 MG TABLET PO SCH (21:31)
[2019-08-07] MEDS: MELATONIN 3 MG TABLET PO SCH (21:31)
[2019-08-07] MEDS: TAMSULOSIN 0.4 MG CAP.ER.24H. PO SCH (21:32)
[2019-08-07] MEDS: MIRTAZAPINE 7.5 MG TABLET. PO SCH (21:32)
--- NOTE | 2019-08-07 21:39 | PDOC ---
Exam Note: Anjel Note: Please also refer to the separate dictated note~for this date of service dictated separately.~Patient seen individually. Discussed the patient with Nursing staff reviewed the chart.~Reviewed interim history and current functioning. Reviewed vital signs,~Labs/ Radiology~and current medications noted below. Continue current treatment with the changes noted in the dictated addendum note Assessment: Vital Signs/I&O: Vital Signs Date Time Temp Pulse Resp B/P (MAP) Pulse Ox O2 Delivery O2 Flow Rate FiO2 08/07/19 21:32 67 135/67 08/07/19 16:56 97.6 16 97 08/07/19 09:47 Room Air 08/03/19 15:43 0.0 I & O 08/06/19 08/06/19 08/07/19 15:00 23:00 07:00 Intake Total 840 ml 480 ml Output Total 650 ml 275 ml Balance 840 ml -170 ml -275 ml Current Medications: I have reviewed the current psychotropics carefully including drug interactions. Risk benefit ratio favors no change other than as noted in my dictated progress note. Diagnosis: Problems: (1) Anxiety disorder (2) Impulse control disorder (3) Vascular dementia with behavior disturbance (4) Vascular dementia with behavioral disturbance (5) Dementia in Alzheimer's disease with depression (6) Dementia in Alzheimer's disease with delusions (7) Dementia of the Alzheimer's type with early onset with behavioral disturbance (8) Major neurocognitive disorder ANEL VALLES MD Aug 07, 2019 21:39
--- NOTE | 2019-08-07 23:56 | PN ---
DATE: 08/06/2019 PSYCHIATRIC PROGRESS NOTE This late entry 08/06/2019 covers elements not covered in my initial note. SUBJECTIVE: I met with the patient evening of 08/06/2019. The patient slept 6-1/4 hours previous night. He is oriented to himself, agitated, yelling at times, pulled his dressing off the left toe, received Zyprexa Zydis. REVIEW OF SYSTEMS: Ambulation impaired, in wheelchair. No CV, , pulmonary, eye, ENT system symptoms on review. Reliability poor. MENTAL STATUS EXAM: Oriented to himself. Insight, judgment, recent and remote memory, attention, concentration, fund of knowledge poor, consistent with his diagnosis mentioned in my initial note. PLAN: No change from initial note. We have added Seroquel and Remeron at night for insomnia, reduce the melatonin to 5 mg at bedtime. Maintain Celexa for now. Adjust further as clinically indicated. MAN Tegan VALLES MD DR: STEVE/eva JOB#: [id number] / [id number]
[2019-08-08 06:18] VITALS: BP 107/64
[2019-08-08] MEDS: GLUCOSAMINE 500 MG CAPSULE PO SCH (09:22)
[2019-08-08] MEDS: CALCIUM CARB/VIT D3 500/200 TABLET PO SCH (09:22)
[2019-08-08] MEDS: levETIRAcetam 500 MG TABLET PO SCH ×2 (09:22→20:03)
[2019-08-08] MEDS: ASPIRIN 325 MG TABLET PO SCH (09:22)
[2019-08-08] MEDS: CITALOPRAM 20 MG TABLET. PO SCH (09:22)
[2019-08-08] MEDS: PANTOPRAZOLE 40 MG TABLET. PO SCH (09:22)
[2019-08-08] MEDS: MULTIVITAMIN with MINERAL TABLET. PO SCH (09:23)
[2019-08-08] MEDS: BUDESONIDE 3 MG CAP.ER.24H. PO SCH (09:23)
[2019-08-08] MEDS: SUCRALFATE 1 GM TABLET. PO SCH ×4 (09:23→20:03)
[2019-08-08] MEDS: CARBIDOPA/LEVODOPA 25/100MG TABLET PO SCH ×4 (09:23→20:04)
[2019-08-08] MEDS: METOPROLOL TART IMMED RELEASE 25 MG TABLET PO SCH ×2 (09:23→20:04)
[2019-08-08] MEDS: BUDESONIDE 0.5 MG/2 ML NEBU NEB SCH ×2 (09:45→20:10)
[2019-08-08 16:17] VITALS: BP 105/54
[2019-08-08] MEDS: QUEtiapine 25 MG TABLET. PO SCH (17:19)
[2019-08-08] MEDS: TAMSULOSIN 0.4 MG CAP.ER.24H. PO SCH (20:03)
[2019-08-08] MEDS: MIRTAZAPINE 7.5 MG TABLET. PO SCH (20:03)
[2019-08-08] MEDS: MELATONIN 3 MG TABLET PO SCH (20:04)
[2019-08-08] MEDS: OLANZapine 5 MG TABLET PO SCH (20:04)
--- NOTE | 2019-08-08 21:07 | PDOC ---
Exam Note: Anjel Note: Please also refer to the separate dictated note~for this date of service dictated separately.~Patient seen individually. Discussed the patient with Nursing staff reviewed the chart.~Reviewed interim history and current functioning. Reviewed vital signs,~Labs/ Radiology~and current medications noted below. Continue current treatment with the changes noted in the dictated addendum note Assessment: Vital Signs/I&O: Vital Signs Date Time Temp Pulse Resp B/P (MAP) Pulse Ox O2 Delivery O2 Flow Rate FiO2 08/08/19 20:15 95 Room Air 08/08/19 20:04 97 105/54 08/08/19 16:17 97.0 16 08/03/19 15:43 0.0 I & O 08/07/19 08/07/19 08/08/19 15:00 23:00 07:00 Intake Total 600 ml 360 ml 100 ml Output Total 600 ml Balance 600 ml 360 ml -500 ml Current Medications: I have reviewed the current psychotropics carefully including drug interactions. Risk benefit ratio favors no change other than as noted in my dictated progress note. Diagnosis: Problems: (1) Anxiety disorder (2) Impulse control disorder (3) Vascular dementia with behavior disturbance (4) Vascular dementia with behavioral disturbance (5) Dementia in Alzheimer's disease with depression (6) Dementia in Alzheimer's disease with delusions (7) Dementia of the Alzheimer's type with early onset with behavioral disturbance (8) Major neurocognitive disorder ANEL VALLES MD Aug 08, 2019 21:07
[2019-08-09] MEDS ORDERED: traZODone 50 MG TABLET. PO PRN (00:15)
[2019-08-09 06:23] VITALS: BP 118/49
[2019-08-09] MEDS: CITALOPRAM 20 MG TABLET. PO SCH (08:45)
[2019-08-09] MEDS: CALCIUM CARB/VIT D3 500/200 TABLET PO SCH (08:45)
[2019-08-09] MEDS: MULTIVITAMIN with MINERAL TABLET. PO SCH (08:46)
[2019-08-09] MEDS: ASPIRIN 325 MG TABLET PO SCH (08:46)
[2019-08-09] MEDS: SUCRALFATE 1 GM TABLET. PO SCH ×4 (08:46→20:45)
[2019-08-09] MEDS: levETIRAcetam 500 MG TABLET PO SCH ×2 (08:46→20:44)
[2019-08-09] MEDS: CARBIDOPA/LEVODOPA 25/100MG TABLET PO SCH ×4 (08:46→20:45)
[2019-08-09] MEDS: GLUCOSAMINE 500 MG CAPSULE PO SCH (08:46)
[2019-08-09] MEDS: PANTOPRAZOLE 40 MG TABLET. PO SCH (08:46)
[2019-08-09] MEDS: BUDESONIDE 3 MG CAP.ER.24H. PO SCH (08:47)
[2019-08-09] MEDS: METOPROLOL TART IMMED RELEASE 25 MG TABLET PO SCH ×2 (08:47→20:45)
[2019-08-09] MEDS: RIVASTIGMINE 4.6MG PATCH. TD SCH (08:47)
[2019-08-09] MEDS: BUDESONIDE 0.5 MG/2 ML NEBU NEB SCH (10:48)
[2019-08-09 14:24] LABS: BASO % 0 % (0-3); EOS % 0 % (0-3); HEMATOCRIT 28.4 % (39.0-53.0); HEMOGLOBIN 9.5 g/dL (13.0-17.5); LYMPH # 0.4 x10^3/uL (1.0-4.8); LYMPH % 4 % (24-48); MEAN CORPUSCULAR HEMOGLOBIN 30 pg (25-35); MEAN CORPUSCULAR HGB CONC 33 g/dL (31-37); MEAN CORPUSCULAR VOLUME 89 fL (79-100); MONO # 0.9 x10^3/uL (0.0-1.1); MONO % 10 % (0-9); NEUT # 7.7 x10^3uL (1.8-7.7); NEUT % 85 % (31-73); PLATELET COUNT 194 x10^3/uL (140-400); RED BLOOD COUNT 3.18 x10^6/uL (4.30-5.70); RED CELL DISTRIBUTION WIDTH 13.5 % (11.5-14.5); WHITE BLOOD COUNT 9.1 x10^3/uL (4.0-11.0)
[2019-08-09 14:38] LABS: ALBUMIN 2.6 g/dL (3.4-5.0); ALBUMIN/GLOBULIN RATIO 0.7 (1.0-1.7); CALCIUM 8.7 mg/dL (8.5-10.1); CREATININE 1.1 mg/dL (0.7-1.3); GFR 64.1; POTASSIUM 3.5 mmol/L (3.5-5.1); TOTAL BILIRUBIN 0.6 mg/dL (0.2-1.0); TOTAL PROTEIN 6.1 g/dL (6.4-8.2)
[2019-08-09 15:49] VITALS: BP 134/61
[2019-08-09] MEDS: QUEtiapine 25 MG TABLET. PO SCH (17:35)
--- NOTE | 2019-08-09 18:18 | PN ---
DATE: 08/07/2019 PSYCHIATRIC PROGRESS NOTE This late entry 08/07/2019 covers elements not covered in my initial note. SUBJECTIVE: I met with the patient evening of 08/07/2019. Per Mer MORFIN, patient slept 6-1/4 hours previous night. He was up at night. Urine C and S is negative. Complains of being tired, but not aggressive. REVIEW OF SYSTEMS: Ambulation impaired, in wheelchair, Broda chair. No CV, , pulmonary, eye, ENT system symptoms on review. Reliability poor. MENTAL STATUS EXAM: Oriented to himself. Insight, judgment, recent and remote memory, attention, concentration, fund of knowledge poor, consistent with his diagnosis mentioned in my initial note. PLAN: No change from initial note. MAN Tegan VALLES MD DR: STEVE/eva JOB#: [id number] / [id number]
[2019-08-09] MEDS: TAMSULOSIN 0.4 MG CAP.ER.24H. PO SCH (20:45)
[2019-08-09] MEDS: OLANZapine 5 MG TABLET PO SCH (20:45)
[2019-08-09] MEDS: MELATONIN 3 MG TABLET PO SCH (20:45)
[2019-08-09] MEDS: traZODone 50 MG TABLET. PO SCH (20:45)
[2019-08-09] MEDS: MIRTAZAPINE 15 MG TABLET PO SCH (20:46)
--- NOTE | 2019-08-09 21:34 | PDOC ---
Exam Note: Anjel Note: Please also refer to the separate dictated note~for this date of service dictated separately.~Patient seen individually. Discussed the patient with Nursing staff reviewed the chart.~Reviewed interim history and current functioning. Reviewed vital signs,~Labs/ Radiology~and current medications noted below. Continue current treatment with the changes noted in the dictated addendum note Assessment: Vital Signs/I&O: Vital Signs Date Time Temp Pulse Resp B/P (MAP) Pulse Ox O2 Delivery O2 Flow Rate FiO2 08/09/19 20:45 88 134/61 08/09/19 15:49 97.9 20 98 08/09/19 10:48 Room Air 08/03/19 15:43 0.0 I & O 08/08/19 08/08/19 08/09/19 15:00 23:00 07:00 Intake Total 240 ml 240 ml 240 ml Balance 240 ml 240 ml 240 ml Labs: Laboratory Tests Test 08/09/19 14:20 White Blood Count 9.1 x10^3/uL (4.0-11.0) Red Blood Count 3.18 x10^6/uL (4.30-5.70) L Hemoglobin 9.5 g/dL (13.0-17.5) L Hematocrit 28.4 % (39.0-53.0) L Mean Corpuscular Volume 89 fL (79-100) Mean Corpuscular Hemoglobin 30 pg (25-35) Mean Corpuscular Hemoglobin Concent 33 g/dL (31-37) Red Cell Distribution Width 13.5 % (11.5-14.5) Platelet Count 194 x10^3/uL (140-400) Neutrophils (%) (Auto) 85 % (31-73) H Lymphocytes (%) (Auto) 4 % (24-48) L Monocytes (%) (Auto) 10 % (0-9) H Eosinophils (%) (Auto) 0 % (0-3) Basophils (%) (Auto) 0 % (0-3) Neutrophils # (Auto) 7.7 x10^3uL (1.8-7.7) Lymphocytes # (Auto) 0.4 x10^3/uL (1.0-4.8) L Monocytes # (Auto) 0.9 x10^3/uL (0.0-1.1) Eosinophils # (Auto) 0.0 x10^3/uL (0.0-0.7) Basophils # (Auto) 0.0 x10^3/uL (0.0-0.2) Sodium Level 142 mmol/L (136-145) Potassium Level 3.5 mmol/L (3.5-5.1) Chloride Level 107 mmol/L (98-107) Carbon Dioxide Level 30 mmol/L (21-32) Anion Gap 5 (6-14) L Blood Urea Nitrogen 33 mg/dL (8-26) H Creatinine 1.1 mg/dL (0.7-1.3) Estimated GFR (Cockcroft-Gault) 64.1 BUN/Creatinine Ratio 30 (6-20) H Glucose Level 149 mg/dL (70-99) H Calcium Level 8.7 mg/dL (8.5-10.1) Total Bilirubin 0.6 mg/dL (0.2-1.0) Aspartate Amino Transferase (AST) 22 U/L (15-37) Alanine Aminotransferase (ALT) 20 U/L (16-63) Alkaline Phosphatase 90 U/L (46-116) Total Protein 6.1 g/dL (6.4-8.2) L Albumin 2.6 g/dL (3.4-5.0) L Albumin/Globulin Ratio 0.7 (1.0-1.7) L Current Medications: Meds: Current Medications Medications (Trade) Dose Ordered Sig/Gina Route PRN Reason Start Time Stop Time Status Last Admin Dose Admin Rivastigmine (Exelon) 1 patch DAILY TD 08/09/19 09:00 08/11/19 09:01 08/09/19 08:47 Trazodone HCl (Desyrel) 50 mg QHS PO 08/09/19 21:00 08/09/19 20:45 I have reviewed the current psychotropics carefully including drug interactions. Risk benefit ratio favors no change other than as noted in my dictated progress note. 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
--- NOTE | 2019-08-09 23:01 | PN ---
DATE: 08/08/2019 PSYCHIATRIC PROGRESS NOTE This late entry 08/08/2019 covers the elements not covered in my initial note. SUBJECTIVE: The patient was staffed at a treatment team meeting with the entire team in the morning and his daughter, Cecily, attended the treatment team meeting. Reviewed the patient's history, progress, medications, discharge plans. The patient is resistive, agitated at times, takes his meds crushed in pudding. REVIEW OF SYSTEMS: Ambulation impaired, in wheelchair. No CV, , pulmonary, eye, ENT system symptoms on review. Reliability poor. MENTAL STATUS EXAM: Oriented to himself. Insight, judgment, recent and remote memory, attention, concentration, fund of knowledge poor, consistent with his diagnosis mentioned in my initial note. The patient also had some vacillation in his cognition within the same day along with intermittent psychotic symptoms. PLAN: Continue psychotropics from initial note. Start Exelon patch 4.6 mg a day for 3 days, then 9.5 mg a day for his questionable symptoms suggestive of Lewy body in addition to the other dementias, though it is certainly not very clear. Adjust further as clinically indicated. MAN Tegan VALLES MD DR: STEVE/eva JOB#: [id number] / [id number]
[2019-08-10] MEDS: BUDESONIDE 0.5 MG/2 ML NEBU NEB SCH ×3 (00:31→20:25)
[2019-08-10] MEDS: ALBUTEROL SULFATE 2.5 MG/3 ML NEBU. NEB PRN (01:53)
[2019-08-10 06:10] VITALS: BP 115/50
[2019-08-10] MEDS: GLUCOSAMINE 500 MG CAPSULE PO SCH (07:44)
[2019-08-10] MEDS: PANTOPRAZOLE 40 MG TABLET. PO SCH (07:44)
[2019-08-10] MEDS: CALCIUM CARB/VIT D3 500/200 TABLET PO SCH (07:44)
[2019-08-10] MEDS: MULTIVITAMIN with MINERAL TABLET. PO SCH (07:45)
[2019-08-10] MEDS: ASPIRIN 325 MG TABLET PO SCH (07:45)
[2019-08-10] MEDS: RIVASTIGMINE 4.6MG PATCH. TD SCH (07:45)
[2019-08-10] MEDS: CARBIDOPA/LEVODOPA 25/100MG TABLET PO SCH ×4 (07:45→19:36)
[2019-08-10] MEDS: CITALOPRAM 20 MG TABLET. PO SCH (07:45)
[2019-08-10] MEDS: SUCRALFATE 1 GM TABLET. PO SCH ×4 (07:45→19:36)
[2019-08-10] MEDS: METOPROLOL TART IMMED RELEASE 25 MG TABLET PO SCH ×2 (07:46→19:36)
[2019-08-10] MEDS: levETIRAcetam 500 MG TABLET PO SCH ×2 (07:46→19:36)
[2019-08-10] MEDS: BUDESONIDE 3 MG CAP.ER.24H. PO SCH (07:46)
--- NOTE | 2019-08-10 10:50 | RAD ---
EXAM: Chest, single view. HISTORY: Cough. COMPARISON: None. FINDINGS: A frontal view of the chest obtained. There is coarse diffuse increased interstitial opacity. There is superimposed left retrocardiac opacity. There is no pleural effusion or pneumothorax. There are calcified granulomas. The heart is normal in size for portable technique. There is a nodular opacity with central lucency within the right mid thorax measuring 1.8 cm. IMPRESSION: 1. Coarse diffuse increased interstitial opacity likely due to chronic interstitial change. There is suspected superimposed left lower lobe infiltrate. 2. 1.8 cm nodular opacity with central lucency within the right mid thorax. The possibility of neoplasm is not excluded. This can be better characterized with a CT. Electronically signed by: Ashley Pollack MD (08/10/2019 10:47 AM) [facility]
[2019-08-10 16:39] VITALS: BP 128/64
[2019-08-10] MEDS: QUEtiapine 25 MG TABLET. PO SCH (17:00)
[2019-08-10] MEDS: TAMSULOSIN 0.4 MG CAP.ER.24H. PO SCH (19:35)
[2019-08-10] MEDS: traZODone 50 MG TABLET. PO SCH (19:36)
[2019-08-10] MEDS: MIRTAZAPINE 15 MG TABLET PO SCH (19:36)
[2019-08-10] MEDS: OLANZapine 5 MG TABLET PO SCH (19:36)
[2019-08-10] MEDS: MELATONIN 3 MG TABLET PO SCH (19:37)
--- NOTE | 2019-08-10 23:22 | PDOC ---
Exam Note: Anjel Note: Please also refer to the separate dictated note~for this date of service dictated separately.~Patient seen individually. Discussed the patient with Nursing staff reviewed the chart.~Reviewed interim history and current functioning. Reviewed vital signs,~Labs/ Radiology~and current medications noted below. Continue current treatment with the changes noted in the dictated addendum note Assessment: Vital Signs/I&O: Vital Signs Date Time Temp Pulse Resp B/P (MAP) Pulse Ox O2 Delivery O2 Flow Rate FiO2 08/10/19 20:25 95 Room Air 08/10/19 19:36 85 128/64 08/10/19 16:39 97.3 20 I & O 08/09/19 08/09/19 08/10/19 15:00 23:00 07:00 Intake Total 960 ml 240 ml 240 ml Output Total 1400 ml 400 ml Balance 960 ml -1160 ml -160 ml Current Medications: I have reviewed the current psychotropics carefully including drug interactions. Risk benefit ratio favors no change other than as noted in my dictated progress note. Diagnosis: Problems: (1) Anxiety disorder (2) Impulse control disorder (3) Vascular dementia with behavior disturbance (4) Vascular dementia with behavioral disturbance (5) Dementia in Alzheimer's disease with depression (6) Dementia in Alzheimer's disease with delusions (7) Dementia of the Alzheimer's type with early onset with behavioral disturbance (8) Major neurocognitive disorder ANEL VALLES MD Aug 10, 2019 23:22
[2019-08-11] MEDS: ACETAMINOPHEN 500 MG TABLET PO PRN (04:59)
[2019-08-11 05:32] LABS: BASO % 0 % (0-3); EOS # 0.1 x10^3/uL (0.0-0.7); EOS % 1 % (0-3); HEMATOCRIT 27.1 % (39.0-53.0); HEMOGLOBIN 9.1 g/dL (13.0-17.5); LYMPH # 0.4 x10^3/uL (1.0-4.8); LYMPH % 4 % (24-48); MEAN CORPUSCULAR HEMOGLOBIN 30 pg (25-35); MEAN CORPUSCULAR HGB CONC 34 g/dL (31-37); MEAN CORPUSCULAR VOLUME 88 fL (79-100); MONO # 0.9 x10^3/uL (0.0-1.1); MONO % 11 % (0-9); NEUT % 84 % (31-73); PLATELET COUNT 201 x10^3/uL (140-400); RED BLOOD COUNT 3.06 x10^6/uL (4.30-5.70); RED CELL DISTRIBUTION WIDTH 13.4 % (11.5-14.5); WHITE BLOOD COUNT 8.3 x10^3/uL (4.0-11.0)
[2019-08-11 05:38] VITALS: BP 144/62
[2019-08-11 05:43] LABS: ALBUMIN 2.4 g/dL (3.4-5.0); ALBUMIN/GLOBULIN RATIO 0.7 (1.0-1.7); CALCIUM 8.9 mg/dL (8.5-10.1); GFR 71.5; POTASSIUM 3.6 mmol/L (3.5-5.1); TOTAL BILIRUBIN 0.8 mg/dL (0.2-1.0); TOTAL PROTEIN 5.9 g/dL (6.4-8.2)
[2019-08-11] MEDS: RIVASTIGMINE 4.6MG PATCH. TD SCH (07:57)
[2019-08-11] MEDS: ASPIRIN 325 MG TABLET PO SCH (07:57)
[2019-08-11] MEDS: levETIRAcetam 500 MG TABLET PO SCH ×2 (07:57→20:14)
[2019-08-11] MEDS: CARBIDOPA/LEVODOPA 25/100MG TABLET PO SCH ×4 (07:57→20:14)
[2019-08-11] MEDS: MULTIVITAMIN with MINERAL TABLET. PO SCH (07:57)
[2019-08-11] MEDS: GLUCOSAMINE 500 MG CAPSULE PO SCH (07:58)
[2019-08-11] MEDS: PANTOPRAZOLE 40 MG TABLET. PO SCH (07:58)
[2019-08-11] MEDS: CITALOPRAM 20 MG TABLET. PO SCH (07:58)
[2019-08-11] MEDS: METOPROLOL TART IMMED RELEASE 25 MG TABLET PO SCH ×2 (07:58→20:15)
[2019-08-11] MEDS: BUDESONIDE 3 MG CAP.ER.24H. PO SCH (07:58)
[2019-08-11] MEDS: SUCRALFATE 1 GM TABLET. PO SCH ×4 (07:58→20:13)
[2019-08-11] MEDS: CALCIUM CARB/VIT D3 500/200 TABLET PO SCH (07:59)
[2019-08-11] MEDS ORDERED: IOHEXOL 350 MG/ML 100 ML VIAL. IV ONE (10:00)
[2019-08-11] MEDS: BUDESONIDE 0.5 MG/2 ML NEBU NEB SCH ×2 (10:29→20:00)
[2019-08-11 10:40] LABS: BILIRUBIN,URINE NEG (NEG); CLARITY,URINE TURBID; COLOR,URINE YELLOW; GLUCOSE,URINE NEG (NEG); NITRITE,URINE POS (NEG); UROBILINOGEN,URINE 1 mg/dL (0.2 mg/dL)
[2019-08-11 10:41] LABS: BACTERIA,URINE MOD /HPF (0-FEW); SQUAMOUS EPITHELIAL CELL,UR FEW /LPF; WBC,URINE >40 /HPF (0-4)
--- NOTE | 2019-08-11 10:51 | RAD ---
EXAM: CT angiography of the chest with intravenous contrast. HISTORY: Abnormal chest x-ray. TECHNIQUE: Computed tomographic images of the chest were obtained following the administration of 90 cc Omnipaque 350 intravenous contrast according to angiography protocol. Multiplanar reformatting was performed and 3-dimensional maximum intensity projection images were obtained. COMPARISON: None. FINDINGS: The exam is extremely limited due to respiratory motion no central pulmonary embolism is seen. The distal pulmonary arteries are not well assessed. There is cardiomegaly. There is coronary artery atherosclerosis. There is calcification of the mitral valve annulus and aortic valve. There is aortic and aortic branch vessel atherosclerosis. No dissection or aneurysm is seen. There is a trace left pleural effusion. There are prominent bilateral hilar lymph nodes. There is partially consolidated left lower lobe infiltrate and there is bilateral lower lobe predominant bronchial wall thickening likely due to bronchitis. There is right basilar interstitial infiltrate or atelectasis. There is lingular atelectasis or scarring. There are peripheral tiny groundglass and nodular opacities within the bilateral upper lobes which may be postinfectious or postinflammatory in etiology. There is mild emphysema. There are calcified granulomas. Evaluation of the upper abdomen demonstrates no acute finding. There are degenerative changes throughout the spine. No suspicious osseous lesion is seen. IMPRESSION: 1. Significantly limited evaluation for pulmonary embolism due to respiratory motion. No central embolism is seen. However, the distal pulmonary arteries are not well assessed. 2. Partially consolidated left lower lobe pneumonia with trace effusion. Follow-up to confirm resolution. 3. Scattered tiny peripheral predominant groundglass and nodular opacities within the bilateral upper lobes, possibly postinfectious or postinflammatory in etiology. Attention the time of follow-up is recommended. 4. Cardiomegaly with coronary artery and aortic atherosclerosis. There is calcification of the aortic valve. 5. Bilateral central bronchial wall thickening consistent with bronchitis. 6. Emphysema. 7. No suspicious correlate for nodularity with central lucency within the right lung on the recent chest radiograph, likely artifactual. Electronically signed by: Ashley Pollack MD (08/11/2019 10:49 AM) [facility]
[2019-08-11 16:13] VITALS: BP 92/46
[2019-08-11] MEDS: QUEtiapine 25 MG TABLET. PO SCH (16:21)
[2019-08-11] MEDS: MIRTAZAPINE 15 MG TABLET PO SCH (20:13)
[2019-08-11] MEDS: traZODone 50 MG TABLET. PO SCH (20:14)
[2019-08-11] MEDS: OLANZapine 5 MG TABLET PO SCH (20:14)
[2019-08-11] MEDS: TAMSULOSIN 0.4 MG CAP.ER.24H. PO SCH (20:14)
[2019-08-11] MEDS: CEFDINIR 300 MG CAPSULE PO SCH (20:15)
[2019-08-11] MEDS: MELATONIN 3 MG TABLET PO SCH (20:16)
--- NOTE | 2019-08-11 21:49 | PDOC ---
Exam Note: Anjel Note: Please also refer to the separate dictated note~for this date of service dictated separately.~Patient seen individually. Discussed the patient with Nursing staff reviewed the chart.~Reviewed interim history and current functioning. Reviewed vital signs,~Labs/ Radiology~and current medications noted below. Continue current treatment with the changes noted in the dictated addendum note Assessment: Vital Signs/I&O: Vital Signs Date Time Temp Pulse Resp B/P (MAP) Pulse Ox O2 Delivery O2 Flow Rate FiO2 08/11/19 20:20 95 Room Air 08/11/19 20:15 86 110/76 08/11/19 16:13 98.4 20 I & O 08/10/19 08/10/19 08/11/19 15:00 23:00 07:00 Intake Total 240 ml 240 ml Output Total 600 ml Balance 240 ml -360 ml Labs: Laboratory Tests Test 08/11/19 05:20 08/11/19 10:10 White Blood Count 8.3 x10^3/uL (4.0-11.0) Red Blood Count 3.06 x10^6/uL (4.30-5.70) L Hemoglobin 9.1 g/dL (13.0-17.5) L Hematocrit 27.1 % (39.0-53.0) L Mean Corpuscular Volume 88 fL (79-100) Mean Corpuscular Hemoglobin 30 pg (25-35) Mean Corpuscular Hemoglobin Concent 34 g/dL (31-37) Red Cell Distribution Width 13.4 % (11.5-14.5) Platelet Count 201 x10^3/uL (140-400) Neutrophils (%) (Auto) 84 % (31-73) H Lymphocytes (%) (Auto) 4 % (24-48) L Monocytes (%) (Auto) 11 % (0-9) H Eosinophils (%) (Auto) 1 % (0-3) Basophils (%) (Auto) 0 % (0-3) Neutrophils # (Auto) 7.0 x10^3uL (1.8-7.7) Lymphocytes # (Auto) 0.4 x10^3/uL (1.0-4.8) L Monocytes # (Auto) 0.9 x10^3/uL (0.0-1.1) Eosinophils # (Auto) 0.1 x10^3/uL (0.0-0.7) Basophils # (Auto) 0.0 x10^3/uL (0.0-0.2) Sodium Level 148 mmol/L (136-145) H Potassium Level 3.6 mmol/L (3.5-5.1) Chloride Level 111 mmol/L (98-107) H Carbon Dioxide Level 31 mmol/L (21-32) Anion Gap 6 (6-14) Blood Urea Nitrogen 29 mg/dL (8-26) H Creatinine 1.0 mg/dL (0.7-1.3) Estimated GFR (Cockcroft-Gault) 71.5 BUN/Creatinine Ratio 29 (6-20) H Glucose Level 111 mg/dL (70-99) H Lactic Acid Level 0.7 mmol/L (0.4-2.0) Calcium Level 8.9 mg/dL (8.5-10.1) Total Bilirubin 0.8 mg/dL (0.2-1.0) Aspartate Amino Transferase (AST) 24 U/L (15-37) Alanine Aminotransferase (ALT) 24 U/L (16-63) Alkaline Phosphatase 94 U/L (46-116) Total Protein 5.9 g/dL (6.4-8.2) L Albumin 2.4 g/dL (3.4-5.0) L Albumin/Globulin Ratio 0.7 (1.0-1.7) L Urine Collection Type U cath Urine Color Yellow Urine Clarity Turbid Urine pH 7.0 Urine Specific [place] 1.025 Urine Protein >100 mg/dl (NEG-TRACE) Urine Glucose (UA) Neg mg/dL (NEG) Urine Ketones (Stick) Neg mg/dL (NEG) Urine Blood Large (NEG) Urine Nitrite Pos (NEG) Urine Bilirubin Neg (NEG) Urine Urobilinogen Dipstick 1 mg/dL (0.2 mg/dL) Urine Leukocyte Esterase Small (NEG) Urine RBC 11-20 /HPF (0-2) Urine WBC >40 /HPF (0-4) Urine Squamous Epithelial Cells Few /LPF Urine Transitional Epithelial Cells Occ /LPF Urine Bacteria Mod /HPF (0-FEW) Current Medications: Meds: Current Medications Medications (Trade) Dose Ordered Sig/Gina Route PRN Reason Start Time Stop Time Status Last Admin Dose Admin Melatonin (Melatonin) 3 mg QHS PO 08/11/19 21:00 08/11/19 20:16 Iohexol (Omnipaque 350 Mg/ml) 100 ml 1X ONCE IV 08/11/19 10:00 08/11/19 10:01 DC 08/11/19 10:22 Cefdinir (Omnicef) 300 mg BID PO 08/11/19 21:00 08/11/19 20:15 I have reviewed the current psychotropics carefully including drug interactions. Risk benefit ratio favors no change other than as noted in my dictated progress note. Diagnosis: Problems: (1) Anxiety disorder (2) Impulse control disorder (3) Vascular dementia with behavior disturbance (4) Vascular dementia with behavioral disturbance (5) Dementia in Alzheimer's disease with depression (6) Dementia in Alzheimer's disease with delusions (7) Dementia of the Alzheimer's type with early onset with behavioral disturbance (8) Major neurocognitive disorder ANEL VALLES MD Aug 11, 2019 21:49
[2019-08-12] MEDS: ACETAMINOPHEN 500 MG TABLET PO PRN (03:59)
[2019-08-12 04:06] VITALS: BP 155/73
[2019-08-12 06:05] VITALS: BP 143/64
--- NOTE | 2019-08-12 06:32 | PN ---
DATE: 08/09/2019 PSYCHIATRIC PROGRESS NOTE This late entry 08/09/2019 covers elements not covered in my initial note. SUBJECTIVE: I met with the patient in the evening of 08/09/2019. The patient slept 3-1/4 hours previous night per NAVJOT Stout. He takes meds crushed in pudding, remains at the day room, confused. REVIEW OF SYSTEMS: No CV, , pulmonary, eye, ENT system symptoms on review. Reliability poor. Gait unsteady, in wheelchair. MENTAL STATUS EXAM: Oriented to himself. Insight, judgment, recent and remote memory, attention, concentration, fund of knowledge poor, consistent with his diagnosis mentioned in my initial note. PLAN: No change from initial note. MAN Tegan VALLES MD DR: STEVE/eva JOB#: [id number] / [id number]
[2019-08-12] MEDS: CITALOPRAM 20 MG TABLET. PO SCH (08:48)
[2019-08-12] MEDS: SUCRALFATE 1 GM TABLET. PO SCH ×4 (08:48→19:42)
[2019-08-12] MEDS: CARBIDOPA/LEVODOPA 25/100MG TABLET PO SCH ×4 (08:48→19:42)
[2019-08-12] MEDS: MULTIVITAMIN with MINERAL TABLET. PO SCH (08:48)
[2019-08-12] MEDS: CEFDINIR 300 MG CAPSULE PO SCH ×2 (08:48→19:42)
[2019-08-12] MEDS: levETIRAcetam 500 MG TABLET PO SCH ×2 (08:48→19:42)
[2019-08-12] MEDS: ASPIRIN 325 MG TABLET PO SCH (08:48)
[2019-08-12] MEDS: GLUCOSAMINE 500 MG CAPSULE PO SCH (08:48)
[2019-08-12] MEDS: CALCIUM CARB/VIT D3 500/200 TABLET PO SCH (08:48)
[2019-08-12] MEDS: PANTOPRAZOLE 40 MG TABLET. PO SCH (08:49)
[2019-08-12] MEDS: METOPROLOL TART IMMED RELEASE 25 MG TABLET PO SCH ×2 (08:49→19:44)
[2019-08-12] MEDS: RIVASTIGMINE 9.5MG PATCH. TD SCH (08:49)
[2019-08-12] MEDS: BUDESONIDE 3 MG CAP.ER.24H. PO SCH (08:50)
[2019-08-12] MEDS: BUDESONIDE 0.5 MG/2 ML NEBU NEB SCH ×2 (11:27→23:10)
[2019-08-12 16:03] VITALS: BP 86/56
[2019-08-12] MEDS: QUEtiapine 25 MG TABLET. PO SCH (17:15)
[2019-08-12] MEDS: OLANZapine 5 MG TABLET PO SCH (19:41)
[2019-08-12] MEDS: traZODone 50 MG TABLET. PO SCH (19:42)
[2019-08-12] MEDS: MIRTAZAPINE 15 MG TABLET PO SCH (19:42)
[2019-08-12] MEDS: MELATONIN 3 MG TABLET PO SCH (19:42)
[2019-08-12] MEDS: TAMSULOSIN 0.4 MG CAP.ER.24H. PO SCH (19:42)
[2019-08-12 19:43] VITALS: BP 116/54
--- NOTE | 2019-08-12 21:01 | PN ---
DATE: 07/31/2019 PSYCHIATRIC PROGRESS NOTE This late entry 08/10/2019 covers the elements not covered in my initial note. SUBJECTIVE: I met with the patient in the evening of 08/10/2019. The patient slept 3-3/4 hours previous night. He has been disorganized, restless, ambulates in wheelchair. REVIEW OF SYSTEMS: No CV, , pulmonary, eye, ENT system symptoms on review. Reliability poor. MENTAL STATUS EXAM: Oriented to himself. Insight, judgment, recent and remote memory, attention, concentration, fund of knowledge poor, consistent with his diagnosis mentioned in my initial note. PLAN: Start melatonin 3 mg at bedtime for his insomnia. Continue rest unchanged for now, Celexa, melatonin, Remeron, Seroquel, Exelon patch along with trazodone. MAN Tegan VALLES MD DR: STEVE/eva JOB#: [id number] / [id number]
--- NOTE | 2019-08-12 21:12 | PDOC ---
Exam Note: Anjel Note: Please also refer to the separate dictated note~for this date of service dictated separately.~Patient seen individually. Discussed the patient with Nursing staff reviewed the chart.~Reviewed interim history and current functioning. Reviewed vital signs,~Labs/ Radiology~and current medications noted below. Continue current treatment with the changes noted in the dictated addendum note Assessment: Vital Signs/I&O: Vital Signs Date Time Temp Pulse Resp B/P (MAP) Pulse Ox O2 Delivery O2 Flow Rate FiO2 08/12/19 19:44 74 116/54 08/12/19 16:03 98.1 22 94 08/12/19 11:27 Room Air I & O 08/11/19 08/11/19 08/12/19 15:00 23:00 07:00 Intake Total 240 ml 480 ml 240 ml Balance 240 ml 480 ml 240 ml Current Medications: Meds: Current Medications Medications (Trade) Dose Ordered Sig/Gina Route PRN Reason Start Time Stop Time Status Last Admin Dose Admin Rivastigmine (Exelon) 1 patch DAILY TD 08/12/19 09:00 08/12/19 08:49 I have reviewed the current psychotropics carefully including drug interactions. Risk benefit ratio favors no change other than as noted in my dictated progress note. Diagnosis: Problems: (1) Anxiety disorder (2) Impulse control disorder (3) Vascular dementia with behavior disturbance (4) Vascular dementia with behavioral disturbance (5) Dementia in Alzheimer's disease with depression (6) Dementia in Alzheimer's disease with delusions (7) Dementia of the Alzheimer's type with early onset with behavioral disturbance (8) Major neurocognitive disorder ANEL VALLES MD Aug 12, 2019 21:12
--- NOTE | 2019-08-13 03:59 | PN ---
DATE: 08/11/2019 PSYCHIATRIC PROGRESS NOTE This late entry 08/11/2019 covers the elements not covered in my initial note. SUBJECTIVE: I met with the patient in the evening. The patient slept 4-1/4 hours previous night despite the melatonin that was added. He does have left lower lobe pneumonia, is on Ceftin twice a day and may have a UTI. Urine has reflex to culture. Sodium 148. WBC unremarkable. He slept in in the morning, combative in the evening. I will defer medical management to Dr. Smallwood. REVIEW OF SYSTEMS: No CV, , pulmonary, eye, ENT system symptoms on review. Reliability poor. Gait unsteady, in wheelchair. MENTAL STATUS EXAM: Oriented to himself. Insight, judgment, recent and remote memory, attention, concentration, fund of knowledge poor, consistent with his diagnosis. IMPRESSION: Major neurocognitive disorder, Alzheimer, vascular with delusion, depression, behavioral disturbance, anxiety disorder, unspecified pneumonia, UTI, dehydration. Rest unchanged. PLAN: Continue current psychotropics mentioned in my initial note. Treat medically per Dr. Smallwood. Adjust further as clinically indicated. MAN Tegan VALLES MD DR: STEVE/eva JOB#: [id number] / [id number]
[2019-08-13 05:46] VITALS: BP 159/67
[2019-08-13] MEDS: CEFDINIR 300 MG CAPSULE PO SCH ×2 (08:11→21:28)
[2019-08-13] MEDS: RIVASTIGMINE 9.5MG PATCH. TD SCH (08:11)
[2019-08-13] MEDS: CITALOPRAM 20 MG TABLET. PO SCH (08:11)
[2019-08-13] MEDS: levETIRAcetam 500 MG TABLET PO SCH ×2 (08:12→21:28)
[2019-08-13] MEDS: CALCIUM CARB/VIT D3 500/200 TABLET PO SCH (08:12)
[2019-08-13] MEDS: SUCRALFATE 1 GM TABLET. PO SCH ×4 (08:12→21:31)
[2019-08-13] MEDS: MULTIVITAMIN with MINERAL TABLET. PO SCH (08:12)
[2019-08-13] MEDS: QUEtiapine 25 MG TABLET. PO SCH ×2 (08:12→17:46)
[2019-08-13] MEDS: CARBIDOPA/LEVODOPA 25/100MG TABLET PO SCH ×4 (08:12→21:29)
[2019-08-13] MEDS: ASPIRIN 325 MG TABLET PO SCH (08:12)
[2019-08-13] MEDS: GLUCOSAMINE 500 MG CAPSULE PO SCH (08:12)
[2019-08-13] MEDS: PANTOPRAZOLE 40 MG TABLET. PO SCH (08:13)
[2019-08-13] MEDS: METOPROLOL TART IMMED RELEASE 25 MG TABLET PO SCH ×2 (08:13→21:28)
[2019-08-13] MEDS: BUDESONIDE 3 MG CAP.ER.24H. PO SCH (08:14)
[2019-08-13] MEDS: BUDESONIDE 0.5 MG/2 ML NEBU NEB SCH ×2 (10:47→21:32)
[2019-08-13 17:12] VITALS: BP 112/58
--- NOTE | 2019-08-13 21:07 | PDOC ---
Exam Note: Anjel Note: Please also refer to the separate dictated note~for this date of service dictated separately.~Patient seen individually. Discussed the patient with Nursing staff reviewed the chart.~Reviewed interim history and current functioning. Reviewed vital signs,~Labs/ Radiology~and current medications noted below. Continue current treatment with the changes noted in the dictated addendum note Assessment: Vital Signs/I&O: Vital Signs Date Time Temp Pulse Resp B/P (MAP) Pulse Ox O2 Delivery O2 Flow Rate FiO2 08/13/19 17:12 97.7 61 16 112/58 (76) 99 08/13/19 10:47 Room Air I & O 08/12/19 08/12/19 08/13/19 15:00 23:00 07:00 Intake Total 120 ml 360 ml Output Total 600 ml Balance 120 ml -240 ml Current Medications: Meds: Current Medications Medications (Trade) Dose Ordered Sig/Gina Route PRN Reason Start Time Stop Time Status Last Admin Dose Admin Quetiapine Fumarate (SEROquel) 12.5 mg 0900 PO 08/13/19 09:00 08/13/19 08:12 I have reviewed the current psychotropics carefully including drug interactions. Risk benefit ratio favors no change other than as noted in my dictated progress note. 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
[2019-08-13] MEDS: TAMSULOSIN 0.4 MG CAP.ER.24H. PO SCH (21:28)
[2019-08-13] MEDS: MELATONIN 3 MG TABLET PO SCH (21:28)
[2019-08-13] MEDS: MIRTAZAPINE 15 MG TABLET PO SCH (21:28)
[2019-08-13] MEDS: traZODone 50 MG TABLET. PO SCH (21:29)
[2019-08-13] MEDS: OLANZapine 5 MG TABLET PO SCH (21:29)
--- NOTE | 2019-08-13 22:24 | PN ---
DATE: 08/12/2019 PSYCHIATRIC PROGRESS NOTE This late entry 08/12/2019 covers elements not covered in my initial note. SUBJECTIVE: I met with the patient evening of 08/12/2019. Per NAVJOT Garcia, the patient slept 5-3/4 hours previous night. He slept 10 in the morning, up before lunch, cooperative, compliant with medications at times, restless, but does redirect. Towards the evening, he was quite anxious, restless, constantly moving. Staff had to be with him at all times. He is trying to get out of his chair. REVIEW OF SYSTEMS: No CV, , pulmonary, eye, ENT system symptoms on review. Reliability poor. Gait unsteady, in wheelchair. MENTAL STATUS EXAM: Oriented to himself. Insight, judgment, recent and remote memory, attention, concentration, fund of knowledge poor consistent with his diagnosis. IMPRESSION: Major neurocognitive disorder, Alzheimer, vascular with delusion, depression, behavioral disturbance, anxiety disorder, unspecified; impulse control disorder, unspecified. Rest unchanged. PLAN: Add Seroquel 12.5 mg 9 a.m., continue 12.5 mg at 1700 together with Celexa, Remeron, Exelon patch 9.5 mg a day, trazodone and melatonin. May need to increase Seroquel further depending on his agitation and restlessness. MAN Tegan VALLES MD DR: STEVE/eva JOB#: [id number] / [id number]
[2019-08-14 04:42] VITALS: BP 150/71
[2019-08-14] MEDS: ASPIRIN 325 MG TABLET PO SCH (08:37)
[2019-08-14] MEDS: MULTIVITAMIN with MINERAL TABLET. PO SCH (08:38)
[2019-08-14] MEDS: CALCIUM CARB/VIT D3 500/200 TABLET PO SCH (08:38)
[2019-08-14] MEDS: SUCRALFATE 1 GM TABLET. PO SCH ×4 (08:38→19:58)
[2019-08-14] MEDS: levETIRAcetam 500 MG TABLET PO SCH ×2 (08:38→19:59)
[2019-08-14] MEDS: CITALOPRAM 20 MG TABLET. PO SCH (08:40)
[2019-08-14] MEDS: CARBIDOPA/LEVODOPA 25/100MG TABLET PO SCH ×4 (08:40→19:58)
[2019-08-14] MEDS: METOPROLOL TART IMMED RELEASE 25 MG TABLET PO SCH ×2 (08:40→19:59)
[2019-08-14] MEDS: GLUCOSAMINE 500 MG CAPSULE PO SCH (08:41)
[2019-08-14] MEDS: PANTOPRAZOLE 40 MG TABLET. PO SCH (08:41)
[2019-08-14] MEDS: CEFDINIR 300 MG CAPSULE PO SCH ×2 (08:41→19:58)
[2019-08-14] MEDS: BUDESONIDE 3 MG CAP.ER.24H. PO SCH (08:42)
[2019-08-14] MEDS: QUEtiapine 25 MG TABLET. PO SCH ×2 (08:42→17:43)
[2019-08-14] MEDS: RIVASTIGMINE 9.5MG PATCH. TD SCH (08:43)
[2019-08-14] MEDS: LACTOBACILLUS RHAMNOSUS GG 1 CAPSULE. PO SCH ×2 (09:00→19:58)
[2019-08-14] MEDS: BUDESONIDE 0.5 MG/2 ML NEBU NEB SCH (10:21)
[2019-08-14 15:55] VITALS: BP 110/51
[2019-08-14] MEDS: OLANZapine 5 MG TABLET PO SCH (19:58)
[2019-08-14] MEDS: TAMSULOSIN 0.4 MG CAP.ER.24H. PO SCH (19:58)
[2019-08-14] MEDS: MELATONIN 3 MG TABLET PO SCH (19:58)
[2019-08-14] MEDS: MIRTAZAPINE 15 MG TABLET PO SCH (19:59)
[2019-08-14] MEDS: traZODone 50 MG TABLET. PO SCH (19:59)
--- NOTE | 2019-08-14 21:41 | PDOC ---
Exam Note: Anjel Note: Please also refer to the separate dictated note~for this date of service dictated separately.~Patient seen individually. Discussed the patient with Nursing staff reviewed the chart.~Reviewed interim history and current functioning. Reviewed vital signs,~Labs/ Radiology~and current medications noted below. Continue current treatment with the changes noted in the dictated addendum note Assessment: Vital Signs/I&O: Vital Signs Date Time Temp Pulse Resp B/P (MAP) Pulse Ox O2 Delivery O2 Flow Rate FiO2 08/14/19 20:30 97 Room Air 08/14/19 19:59 70 126/83 08/14/19 15:55 97.8 20 I & O 08/13/19 08/13/19 08/14/19 15:00 23:00 07:00 Intake Total 560 ml 240 ml 120 ml Balance 560 ml 240 ml 120 ml Current Medications: Meds: Current Medications Medications (Trade) Dose Ordered Sig/Gina Route PRN Reason Start Time Stop Time Status Last Admin Dose Admin Lactobacillus Rhamnosus (Culturelle) 1 cap BID PO 08/14/19 09:00 08/14/19 19:58 I have reviewed the current psychotropics carefully including drug interactions. Risk benefit ratio favors no change other than as noted in my dictated progress note. 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
[2019-08-15] MEDS: BUDESONIDE 0.5 MG/2 ML NEBU NEB SCH ×3 (02:28→21:15)
[2019-08-15 05:16] VITALS: BP 138/63
[2019-08-15] MEDS: RIVASTIGMINE 9.5MG PATCH. TD SCH (07:58)
[2019-08-15] MEDS: PANTOPRAZOLE 40 MG TABLET. PO SCH (07:58)
[2019-08-15] MEDS: CEFDINIR 300 MG CAPSULE PO SCH ×2 (08:00→20:13)
[2019-08-15] MEDS: GLUCOSAMINE 500 MG CAPSULE PO SCH (08:00)
[2019-08-15] MEDS: CARBIDOPA/LEVODOPA 25/100MG TABLET PO SCH ×4 (08:00→20:13)
[2019-08-15] MEDS: QUEtiapine 25 MG TABLET. PO SCH ×2 (08:01→17:25)
[2019-08-15] MEDS: CALCIUM CARB/VIT D3 500/200 TABLET PO SCH (08:01)
[2019-08-15] MEDS: SUCRALFATE 1 GM TABLET. PO SCH ×4 (08:01→20:08)
[2019-08-15] MEDS: MULTIVITAMIN with MINERAL TABLET. PO SCH (08:01)
[2019-08-15] MEDS: levETIRAcetam 500 MG TABLET PO SCH ×2 (08:02→20:12)
[2019-08-15] MEDS: BUDESONIDE 3 MG CAP.ER.24H. PO SCH (08:02)
[2019-08-15] MEDS: LACTOBACILLUS RHAMNOSUS GG 1 CAPSULE. PO SCH ×2 (08:02→20:11)
[2019-08-15] MEDS: CITALOPRAM 20 MG TABLET. PO SCH (08:02)
[2019-08-15] MEDS: ASPIRIN 325 MG TABLET PO SCH (08:02)
[2019-08-15] MEDS: METOPROLOL TART IMMED RELEASE 25 MG TABLET PO SCH ×2 (08:03→20:12)
--- NOTE | 2019-08-15 08:54 | PN ---
DATE: 08/13/2019 PSYCHIATRIC PROGRESS NOTE This late entry date of service 08/13/2019 covers elements not covered in my initial note. SUBJECTIVE: Per RN, the patient slept 7 hours previous night. He remains confused, anxious. No behavior problems, but he is restless, constantly moving. Appetite is fair. REVIEW OF SYSTEMS: Ambulation impaired, in wheelchair. No CV, , pulmonary, eye system symptoms on review. Reliability poor. MENTAL STATUS EXAM: Oriented to himself. Insight, judgment, recent and remote memory, attention, concentration, fund of knowledge poor, consistent with his diagnosis mentioned in my initial note. PLAN: No change from initial note. ANEL VALLES MD DR: STEVE/eva JOB#: [id number] / [id number]
[2019-08-15 15:39] VITALS: BP 135/78
[2019-08-15] MEDS: traZODone 50 MG TABLET. PO SCH (20:12)
[2019-08-15] MEDS: TAMSULOSIN 0.4 MG CAP.ER.24H. PO SCH (20:12)
[2019-08-15] MEDS: MIRTAZAPINE 15 MG TABLET PO SCH (20:13)
[2019-08-15] MEDS: MELATONIN 3 MG TABLET PO SCH (20:13)
[2019-08-15] MEDS: OLANZapine 5 MG TABLET PO SCH (20:13)
--- NOTE | 2019-08-15 21:38 | PDOC ---
Exam Note: Anjel Note: Please also refer to the separate dictated note~for this date of service dictated separately.~Patient seen individually. Discussed the patient with Nursing staff reviewed the chart.~Reviewed interim history and current functioning. Reviewed vital signs,~Labs/ Radiology~and current medications noted below. Continue current treatment with the changes noted in the dictated addendum note Assessment: Vital Signs/I&O: Vital Signs Date Time Temp Pulse Resp B/P (MAP) Pulse Ox O2 Delivery O2 Flow Rate FiO2 08/15/19 21:18 94 Room Air 08/15/19 20:12 70 135/78 08/15/19 15:39 97.8 16 I & O 08/14/19 08/14/19 08/15/19 15:00 23:00 07:00 Intake Total 960 ml 480 ml 240 ml Output Total 200 ml Balance 760 ml 480 ml 240 ml Current Medications: I have reviewed the current psychotropics carefully including drug interactions. Risk benefit ratio favors no change other than as noted in my dictated progress note. 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
[2019-08-16 05:35] VITALS: BP 109/74
[2019-08-16] MEDS: PANTOPRAZOLE 40 MG TABLET. PO SCH (08:13)
[2019-08-16] MEDS: ASPIRIN 325 MG TABLET PO SCH (08:13)
[2019-08-16] MEDS: LACTOBACILLUS RHAMNOSUS GG 1 CAPSULE. PO SCH ×2 (08:13→19:25)
[2019-08-16] MEDS: RIVASTIGMINE 9.5MG PATCH. TD SCH (08:14)
[2019-08-16] MEDS: CEFDINIR 300 MG CAPSULE PO SCH ×2 (08:14→19:26)
[2019-08-16] MEDS: BUDESONIDE 3 MG CAP.ER.24H. PO SCH (08:14)
[2019-08-16] MEDS: levETIRAcetam 500 MG TABLET PO SCH ×2 (08:15→19:26)
[2019-08-16] MEDS: CALCIUM CARB/VIT D3 500/200 TABLET PO SCH (08:15)
[2019-08-16] MEDS: CARBIDOPA/LEVODOPA 25/100MG TABLET PO SCH ×4 (08:15→19:26)
[2019-08-16] MEDS: QUEtiapine 25 MG TABLET. PO SCH ×2 (08:15→17:21)
[2019-08-16] MEDS: MULTIVITAMIN with MINERAL TABLET. PO SCH (08:15)
[2019-08-16] MEDS: GLUCOSAMINE 500 MG CAPSULE PO SCH (08:15)
[2019-08-16] MEDS: METOPROLOL TART IMMED RELEASE 25 MG TABLET PO SCH ×2 (08:16→19:25)
[2019-08-16] MEDS: SUCRALFATE 1 GM TABLET. PO SCH ×4 (08:17→19:26)
[2019-08-16] MEDS: CITALOPRAM 20 MG TABLET. PO SCH (08:17)
[2019-08-16] MEDS: BUDESONIDE 0.5 MG/2 ML NEBU NEB SCH ×2 (09:52→20:50)
[2019-08-16 16:02] VITALS: BP 126/63
[2019-08-16] MEDS: traZODone 50 MG TABLET. PO SCH (19:25)
[2019-08-16] MEDS: MELATONIN 3 MG TABLET PO SCH (19:25)
[2019-08-16] MEDS: MIRTAZAPINE 15 MG TABLET PO SCH (19:25)
[2019-08-16] MEDS: OLANZapine 5 MG TABLET PO SCH (19:25)
[2019-08-16] MEDS: TAMSULOSIN 0.4 MG CAP.ER.24H. PO SCH (19:26)
--- NOTE | 2019-08-16 21:31 | PDOC ---
Exam Note: Anjel Note: Please also refer to the separate dictated note~for this date of service dictated separately.~Patient seen individually. Discussed the patient with Nursing staff reviewed the chart.~Reviewed interim history and current functioning. Reviewed vital signs,~Labs/ Radiology~and current medications noted below. Continue current treatment with the changes noted in the dictated addendum note Assessment: Vital Signs/I&O: Vital Signs Date Time Temp Pulse Resp B/P (MAP) Pulse Ox O2 Delivery O2 Flow Rate FiO2 08/16/19 20:55 98 Room Air 08/16/19 19:25 79 126/63 08/16/19 16:02 98.0 16 I & O 08/15/19 08/15/19 08/16/19 15:00 23:00 07:00 Intake Total 600 ml 1200 ml 0 ml Balance 600 ml 1200 ml 0 ml Current Medications: I have reviewed the current psychotropics carefully including drug interactions. Risk benefit ratio favors no change other than as noted in my dictated progress note. 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
--- NOTE | 2019-08-17 00:12 | PN ---
DATE: 08/14/2019 PSYCHIATRIC PROGRESS NOTE This is a late entry 08/14/2019 covers elements not covered in my initial note. SUBJECTIVE: I met with the patient in the evening. Per Marissa RN, patient slept 5 hours previous night. He remains confused, somewhat anxious, and restless. The latter is probably partially attributed to his pneumonia, which has been treated and the UTI. I will defer this to Dr. Smallwood. REVIEW OF SYSTEMS: Ambulation impaired, in wheelchair. No CV, , pulmonary, eye, ENT system symptoms on review. Reliability poor. MENTAL STATUS EXAM: Oriented to himself. Insight, judgment, recent and remote memory, attention, concentration, fund of knowledge poor, consistent with his diagnosis mentioned in my initial note. PLAN: No change from initial note. Treat the UTI depending on culture and sensitivity results. Maintain Celexa, Remeron, Seroquel, Exelon patch, which is being increased along with continuing melatonin and trazadone. ANEL VALLES MD DR: STEVE/eva JOB#: [id number] / [id number]
--- NOTE | 2019-08-17 01:46 | PN ---
DATE: 08/15/2019 PSYCHIATRIC PROGRESS NOTE This late entry 08/15/2019 covers elements not covered in my initial note. SUBJECTIVE: I met with the patient evening of 08/15/2019. The patient was also staffed at a treatment team meeting with the entire team in the morning. The patient's daughter, Cecily, attended the conference. Appetite 100%, sleeping about 5 hours. Reviewed his history and progress. He is compliant with medications. Assessment, remains restless. He does have a UTI, intermediate sensitivity to his current antibiotics, Ceftin for the pneumonia and is sensitive to Levaquin. We will check with Dr. Smallwood about this. Certainly resolution of the UTI would go a long way to help his agitation. He remains confused. REVIEW OF SYSTEMS: Ambulation impaired, in wheelchair. No CV, , pulmonary, eye, ENT system symptoms on review. Reliability poor. MENTAL STATUS EXAMINATION: Oriented to himself. Insight, judgment, recent and remote memory, attention, concentration, fund of knowledge poor, consistent with his diagnosis mentioned in my initial note. IMPRESSION: Major neurocognitive disorder, Alzheimer, vascular with delusion, depression, behavioral disturbance; anxiety disorder, unspecified; impulse control disorder, unspecified; pneumonia, urinary tract infection. Rest unchanged. PLAN: Continue current psychotropics. Rest as above. Treat the UTI. We will make further adjustments in psychotropics post-above being completed. [facility] after he has been stable for a month or so, perhaps the Seroquel should be tapered and I have discussed this with the daughter. MAN Tegan VALLES MD DR: STEVE/eva JOB#: [id number] / [id number]
[2019-08-17 05:44] VITALS: BP 134/63
[2019-08-17] MEDS: BUDESONIDE 0.5 MG/2 ML NEBU NEB SCH ×2 (08:00→23:34)
[2019-08-17] MEDS: CEFDINIR 300 MG CAPSULE PO SCH ×2 (09:00→21:09)
[2019-08-17] MEDS: GLUCOSAMINE 500 MG CAPSULE PO SCH (09:00)
[2019-08-17] MEDS: ASPIRIN 325 MG TABLET PO SCH (09:00)
[2019-08-17] MEDS ORDERED: BUDESONIDE 3 MG CAP.ER.24H. PO SCH (09:00)
[2019-08-17] MEDS: MULTIVITAMIN with MINERAL TABLET. PO SCH (09:00)
[2019-08-17] MEDS: BUDESONIDE 3 MG CAP.ER.24H. PO SCH (09:01)
[2019-08-17] MEDS: SUCRALFATE 1 GM TABLET. PO SCH ×4 (09:01→21:10)
[2019-08-17] MEDS: METOPROLOL TART IMMED RELEASE 25 MG TABLET PO SCH ×2 (09:02→21:10)
[2019-08-17] MEDS: levETIRAcetam 500 MG TABLET PO SCH ×2 (09:03→21:10)
[2019-08-17] MEDS: QUEtiapine 25 MG TABLET. PO SCH ×2 (09:03→16:48)
[2019-08-17] MEDS: PANTOPRAZOLE 40 MG TABLET. PO SCH (09:03)
[2019-08-17] MEDS: CARBIDOPA/LEVODOPA 25/100MG TABLET PO SCH ×4 (09:03→21:10)
[2019-08-17] MEDS: LACTOBACILLUS RHAMNOSUS GG 1 CAPSULE. PO SCH ×2 (09:03→21:10)
[2019-08-17] MEDS: CALCIUM CARB/VIT D3 500/200 TABLET PO SCH (09:03)
[2019-08-17] MEDS: CITALOPRAM 20 MG TABLET. PO SCH (09:04)
[2019-08-17] MEDS: RIVASTIGMINE 9.5MG PATCH. TD SCH (09:05)
[2019-08-17 15:42] VITALS: BP 134/71
[2019-08-17] MEDS: traZODone 50 MG TABLET. PO SCH (21:09)
[2019-08-17] MEDS: MIRTAZAPINE 15 MG TABLET PO SCH (21:10)
[2019-08-17] MEDS: OLANZapine 5 MG TABLET PO SCH (21:10)
[2019-08-17] MEDS: MELATONIN 3 MG TABLET PO SCH (21:10)
[2019-08-17] MEDS: TAMSULOSIN 0.4 MG CAP.ER.24H. PO SCH (21:10)
--- NOTE | 2019-08-17 23:19 | PDOC ---
Exam Note: Anjel Note: Please also refer to the separate dictated note~for this date of service dictated separately.~Patient seen individually. Discussed the patient with Nursing staff reviewed the chart.~Reviewed interim history and current functioning. Reviewed vital signs,~Labs/ Radiology~and current medications noted below. Continue current treatment with the changes noted in the dictated addendum note Assessment: Vital Signs/I&O: Vital Signs Date Time Temp Pulse Resp B/P (MAP) Pulse Ox O2 Delivery O2 Flow Rate FiO2 08/17/19 21:10 74 134/71 08/17/19 15:42 97.8 20 96 08/17/19 10:35 Room Air I & O 08/16/19 08/16/19 08/17/19 15:00 23:00 07:00 Intake Total 480 ml 540 ml Output Total 800 ml 400 ml 300 ml Balance -320 ml 140 ml -300 ml Current Medications: I have reviewed the current psychotropics carefully including drug interactions. Risk benefit ratio favors no change other than as noted in my dictated progress note. 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
[2019-08-18 05:57] VITALS: BP 133/61
[2019-08-18] MEDS: RIVASTIGMINE 9.5MG PATCH. TD SCH (10:02)
[2019-08-18] MEDS: BUDESONIDE 3 MG CAP.ER.24H. PO SCH (10:03)
[2019-08-18] MEDS: ASPIRIN 325 MG TABLET PO SCH (10:03)
[2019-08-18] MEDS: QUEtiapine 25 MG TABLET. PO SCH ×2 (10:03→17:26)
[2019-08-18] MEDS: CEFDINIR 300 MG CAPSULE PO SCH ×2 (10:03→20:01)
[2019-08-18] MEDS: LACTOBACILLUS RHAMNOSUS GG 1 CAPSULE. PO SCH ×2 (10:03→19:59)
[2019-08-18] MEDS: MULTIVITAMIN with MINERAL TABLET. PO SCH (10:03)
[2019-08-18] MEDS: SUCRALFATE 1 GM TABLET. PO SCH ×4 (10:04→20:00)
[2019-08-18] MEDS: CITALOPRAM 20 MG TABLET. PO SCH (10:04)
[2019-08-18] MEDS: CALCIUM CARB/VIT D3 500/200 TABLET PO SCH (10:04)
[2019-08-18] MEDS: CARBIDOPA/LEVODOPA 25/100MG TABLET PO SCH ×4 (10:04→19:59)
[2019-08-18] MEDS: levETIRAcetam 500 MG TABLET PO SCH ×2 (10:04→19:58)
[2019-08-18] MEDS: GLUCOSAMINE 500 MG CAPSULE PO SCH (10:04)
[2019-08-18] MEDS: PANTOPRAZOLE 40 MG TABLET. PO SCH (10:04)
[2019-08-18] MEDS: METOPROLOL TART IMMED RELEASE 25 MG TABLET PO SCH ×2 (10:05→20:00)
[2019-08-18] MEDS: BUDESONIDE 0.5 MG/2 ML NEBU NEB SCH ×2 (11:31→20:09)
[2019-08-18 15:45] VITALS: BP 131/66
[2019-08-18] MEDS: OLANZapine 5 MG TABLET PO SCH (19:59)
[2019-08-18] MEDS: MIRTAZAPINE 15 MG TABLET PO SCH (19:59)
[2019-08-18] MEDS: MELATONIN 3 MG TABLET PO SCH (19:59)
[2019-08-18] MEDS: TAMSULOSIN 0.4 MG CAP.ER.24H. PO SCH (20:00)
[2019-08-18] MEDS: traZODone 50 MG TABLET. PO SCH (20:00)
--- NOTE | 2019-08-18 20:36 | PDOC ---
Exam Note: Anjel Note: Please also refer to the separate dictated note~for this date of service dictated separately.~Patient seen individually. Discussed the patient with Nursing staff reviewed the chart.~Reviewed interim history and current functioning. Reviewed vital signs,~Labs/ Radiology~and current medications noted below. Continue current treatment with the changes noted in the dictated addendum note Assessment: Vital Signs/I&O: Vital Signs Date Time Temp Pulse Resp B/P (MAP) Pulse Ox O2 Delivery O2 Flow Rate FiO2 08/18/19 20:11 95 Room Air 08/18/19 20:00 81 131/66 08/18/19 15:45 97.3 20 I & O 08/17/19 08/17/19 08/18/19 15:00 23:00 07:00 Intake Total 960 ml 240 ml 100 ml Output Total 1200 ml 700 ml Balance 960 ml -960 ml -600 ml Current Medications: I have reviewed the current psychotropics carefully including drug interactions. Risk benefit ratio favors no change other than as noted in my dictated progress note. 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
[2019-08-19 05:27] VITALS: BP 144/73
[2019-08-19] MEDS: ASPIRIN 325 MG TABLET PO SCH (08:01)
[2019-08-19] MEDS: QUEtiapine 25 MG TABLET. PO SCH ×2 (08:01→17:25)
[2019-08-19] MEDS: RIVASTIGMINE 9.5MG PATCH. TD SCH (08:01)
[2019-08-19] MEDS: GLUCOSAMINE 500 MG CAPSULE PO SCH (08:02)
[2019-08-19] MEDS: levETIRAcetam 500 MG TABLET PO SCH ×2 (08:02→19:49)
[2019-08-19] MEDS: BUDESONIDE 3 MG CAP.ER.24H. PO SCH (08:03)
[2019-08-19] MEDS: CARBIDOPA/LEVODOPA 25/100MG TABLET PO SCH ×4 (08:03→19:50)
[2019-08-19] MEDS: PANTOPRAZOLE 40 MG TABLET. PO SCH (08:03)
[2019-08-19] MEDS: CALCIUM CARB/VIT D3 500/200 TABLET PO SCH (08:03)
[2019-08-19] MEDS: MULTIVITAMIN with MINERAL TABLET. PO SCH (08:03)
[2019-08-19] MEDS: LACTOBACILLUS RHAMNOSUS GG 1 CAPSULE. PO SCH ×2 (08:04→19:49)
[2019-08-19] MEDS: METOPROLOL TART IMMED RELEASE 25 MG TABLET PO SCH ×2 (08:04→19:50)
[2019-08-19] MEDS: SUCRALFATE 1 GM TABLET. PO SCH ×4 (08:04→19:49)
[2019-08-19] MEDS: CITALOPRAM 20 MG TABLET. PO SCH (08:05)
[2019-08-19] MEDS: CEFDINIR 300 MG CAPSULE PO SCH ×2 (08:05→19:50)
[2019-08-19] MEDS: BUDESONIDE 0.5 MG/2 ML NEBU NEB SCH ×2 (11:41→23:17)
[2019-08-19 16:22] VITALS: BP 121/55
[2019-08-19] MEDS: traZODone 50 MG TABLET. PO SCH (19:49)
[2019-08-19] MEDS: TAMSULOSIN 0.4 MG CAP.ER.24H. PO SCH (19:49)
[2019-08-19] MEDS: OLANZapine 5 MG TABLET PO SCH (19:50)
[2019-08-19] MEDS: MELATONIN 3 MG TABLET PO SCH (19:50)
[2019-08-19] MEDS: MIRTAZAPINE 15 MG TABLET PO SCH (19:52)
--- NOTE | 2019-08-19 20:35 | PDOC ---
Exam Note: Anjel Note: Please also refer to the separate dictated note~for this date of service dictated separately.~Patient seen individually. Discussed the patient with Nursing staff reviewed the chart.~Reviewed interim history and current functioning. Reviewed vital signs,~Labs/ Radiology~and current medications noted below. Continue current treatment with the changes noted in the dictated addendum note Assessment: Vital Signs/I&O: Vital Signs Date Time Temp Pulse Resp B/P (MAP) Pulse Ox O2 Delivery O2 Flow Rate FiO2 08/19/19 19:50 78 121/55 08/19/19 16:22 97.3 18 94 08/19/19 11:41 Room Air I & O 08/18/19 08/18/19 08/19/19 15:00 23:00 07:00 Intake Total 600 ml 480 ml Output Total 725 ml 400 ml Balance 600 ml -245 ml -400 ml Current Medications: I have reviewed the current psychotropics carefully including drug interactions. Risk benefit ratio favors no change other than as noted in my dictated progress note. 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
--- NOTE | 2019-08-19 22:46 | PN ---
DATE: 08/16/2019 PSYCHIATRIC PROGRESS NOTE This late entry 08/16/2019 covers elements not covered in my initial note. SUBJECTIVE: Per Melissa RN, the patient slept 6-1/2 hours. He takes his medications crushed in vanilla pudding, remains confused, does have a UTI, started on Omnicef. REVIEW OF SYSTEMS: Ambulation impaired. No CV, , pulmonary, eye, ENT system symptoms on review. Reliability poor. MENTAL STATUS EXAM: Oriented to himself. Insight, judgment, recent and remote memory, attention, concentration, fund of knowledge poor, consistent with his diagnosis mentioned in my initial note. PLAN: No change from initial note. ANEL VALLES MD DR: STEVE/eva JOB#: [id number] / [id number]
--- NOTE | 2019-08-19 22:59 | PN ---
DATE: 08/17/2019 PSYCHIATRIC PROGRESS NOTE. This late entry of 08/17/2019 covers the elements not covered in my initial note. SUBJECTIVE: I met with the patient in the evening. The patient slept 3 hours in the afternoon. Otherwise, remains confused, much less agitated. REVIEW OF SYSTEMS: Positive for impaired ambulation in wheelchair. No CV, , pulmonary, eye, ENT system symptoms on review. MENTAL STATUS EXAM: Oriented to himself. Insight, judgment, recent and remote memory, attention, concentration, fund of knowledge poor, consistent with his diagnosis mentioned in my initial note. PLAN: No change from initial note. MAN Tegan VALLES MD DR: STEVE/eva JOB#: [id number] / [id number]
--- NOTE | 2019-08-19 22:59 | PN ---
DATE: 08/18/2019 PSYCHIATRIC PROGRESS NOTE This late entry 08/18/2019 covers elements not covered in my initial note. SUBJECTIVE: I met with the patient evening of 08/18/2019. The patient had his wound bandage changed. Appetite is fair, remains confused, less agitated. REVIEW OF SYSTEMS: Ambulation impaired, in wheelchair. No CV, , pulmonary, eye, ENT system symptoms on review. Reliability poor. MENTAL STATUS EXAM: Oriented to himself. Insight, judgment, recent and remote memory, attention, concentration, fund of knowledge poor consistent with his diagnosis mentioned in my initial note. PLAN: No change from initial note. MAN Tegan VALLES MD DR: STEVE/eva JOB#: [id number] / [id number]
[2019-08-20 05:12] VITALS: BP 137/65
[2019-08-20] MEDS: ASPIRIN 325 MG TABLET PO SCH (08:24)
[2019-08-20] MEDS: levETIRAcetam 500 MG TABLET PO SCH ×2 (08:24→19:48)
[2019-08-20] MEDS: RIVASTIGMINE 9.5MG PATCH. TD SCH (08:24)
[2019-08-20] MEDS: METOPROLOL TART IMMED RELEASE 25 MG TABLET PO SCH ×2 (08:24→19:47)
[2019-08-20] MEDS: CEFDINIR 300 MG CAPSULE PO SCH ×2 (08:24→19:47)
[2019-08-20] MEDS: LACTOBACILLUS RHAMNOSUS GG 1 CAPSULE. PO SCH ×2 (08:24→19:47)
[2019-08-20] MEDS: CARBIDOPA/LEVODOPA 25/100MG TABLET PO SCH ×4 (08:25→19:47)
[2019-08-20] MEDS: SUCRALFATE 1 GM TABLET. PO SCH ×4 (08:25→19:48)
[2019-08-20] MEDS: GLUCOSAMINE 500 MG CAPSULE PO SCH (08:25)
[2019-08-20] MEDS: QUEtiapine 25 MG TABLET. PO SCH ×2 (08:25→17:09)
[2019-08-20] MEDS: MULTIVITAMIN with MINERAL TABLET. PO SCH (08:25)
[2019-08-20] MEDS: PANTOPRAZOLE 40 MG TABLET. PO SCH (08:25)
[2019-08-20] MEDS: BUDESONIDE 3 MG CAP.ER.24H. PO SCH (08:26)
[2019-08-20] MEDS: CALCIUM CARB/VIT D3 500/200 TABLET PO SCH (08:26)
[2019-08-20] MEDS: CITALOPRAM 20 MG TABLET. PO SCH (08:26)
[2019-08-20] MEDS: BUDESONIDE 0.5 MG/2 ML NEBU NEB SCH ×2 (10:44→23:46)
[2019-08-20 16:16] VITALS: BP 115/72
[2019-08-20] MEDS: MIRTAZAPINE 15 MG TABLET PO SCH (19:47)
[2019-08-20] MEDS: MELATONIN 3 MG TABLET PO SCH (19:47)
[2019-08-20] MEDS: TAMSULOSIN 0.4 MG CAP.ER.24H. PO SCH (19:47)
[2019-08-20] MEDS: traZODone 50 MG TABLET. PO SCH (19:48)
[2019-08-20] MEDS: OLANZapine 5 MG TABLET PO SCH (19:48)
--- NOTE | 2019-08-20 20:39 | PDOC ---
Exam Note: Anjel Note: Please also refer to the separate dictated note~for this date of service dictated separately.~Patient seen individually. Discussed the patient with Nursing staff reviewed the chart.~Reviewed interim history and current functioning. Reviewed vital signs,~Labs/ Radiology~and current medications noted below. Continue current treatment with the changes noted in the dictated addendum note Assessment: Vital Signs/I&O: Vital Signs Date Time Temp Pulse Resp B/P (MAP) Pulse Ox O2 Delivery O2 Flow Rate FiO2 08/20/19 19:47 77 115/72 08/20/19 16:16 98.2 12 92 08/20/19 10:48 Room Air I & O 08/19/19 08/19/19 08/20/19 15:00 23:00 07:00 Intake Total 840 ml 600 ml Output Total 600 ml 1150 ml Balance 840 ml 0 ml -1150 ml Current Medications: I have reviewed the current psychotropics carefully including drug interactions. Risk benefit ratio favors no change other than as noted in my dictated progress note. 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
[2019-08-21 05:23] VITALS: BP 152/67
[2019-08-21] MEDS: CITALOPRAM 20 MG TABLET. PO SCH (08:25)
[2019-08-21] MEDS: RIVASTIGMINE 9.5MG PATCH. TD SCH (08:25)
[2019-08-21] MEDS: ASPIRIN 325 MG TABLET PO SCH (08:25)
[2019-08-21] MEDS: CARBIDOPA/LEVODOPA 25/100MG TABLET PO SCH ×4 (08:25→20:02)
[2019-08-21] MEDS: levETIRAcetam 500 MG TABLET PO SCH ×2 (08:25→20:02)
[2019-08-21] MEDS: GLUCOSAMINE 500 MG CAPSULE PO SCH (08:25)
[2019-08-21] MEDS: MULTIVITAMIN with MINERAL TABLET. PO SCH (08:25)
[2019-08-21] MEDS: METOPROLOL TART IMMED RELEASE 25 MG TABLET PO SCH ×2 (08:25→20:03)
[2019-08-21] MEDS: SUCRALFATE 1 GM TABLET. PO SCH ×4 (08:25→20:02)
[2019-08-21] MEDS: LACTOBACILLUS RHAMNOSUS GG 1 CAPSULE. PO SCH ×2 (08:26→20:02)
[2019-08-21] MEDS: BUDESONIDE 3 MG CAP.ER.24H. PO SCH (08:26)
[2019-08-21] MEDS: CALCIUM CARB/VIT D3 500/200 TABLET PO SCH (08:26)
[2019-08-21] MEDS: PANTOPRAZOLE 40 MG TABLET. PO SCH (08:26)
[2019-08-21] MEDS: QUEtiapine 25 MG TABLET. PO SCH ×2 (08:26→17:24)
[2019-08-21] MEDS: BUDESONIDE 0.5 MG/2 ML NEBU NEB SCH ×2 (10:59→20:14)
[2019-08-21] MEDS: ALBUTEROL SULFATE 2.5 MG/3 ML NEBU. NEB PRN (10:59)
[2019-08-21 15:50] VITALS: BP 137/60
[2019-08-21] MEDS: TAMSULOSIN 0.4 MG CAP.ER.24H. PO SCH (20:02)
[2019-08-21] MEDS: traZODone 50 MG TABLET. PO SCH (20:02)
[2019-08-21] MEDS: MIRTAZAPINE 15 MG TABLET PO SCH (20:02)
[2019-08-21] MEDS: OLANZapine 5 MG TABLET PO SCH (20:02)
[2019-08-21] MEDS: MELATONIN 3 MG TABLET PO SCH (20:02)
--- NOTE | 2019-08-21 20:44 | PDOC ---
Exam Note: Anjel Note: Please also refer to the separate dictated note~for this date of service dictated separately.~Patient seen individually. Discussed the patient with Nursing staff reviewed the chart.~Reviewed interim history and current functioning. Reviewed vital signs,~Labs/ Radiology~and current medications noted below. Continue current treatment with the changes noted in the dictated addendum note Assessment: Vital Signs/I&O: Vital Signs Date Time Temp Pulse Resp B/P (MAP) Pulse Ox O2 Delivery O2 Flow Rate FiO2 08/21/19 20:18 95 Room Air 08/21/19 20:03 64 137/60 08/21/19 15:50 98.4 16 I & O 08/20/19 08/20/19 08/21/19 15:00 23:00 07:00 Intake Total 720 ml 480 ml 240 ml Output Total 675 ml Balance 720 ml 480 ml -435 ml Current Medications: I have reviewed the current psychotropics carefully including drug interactions. Risk benefit ratio favors no change other than as noted in my dictated progress note. 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
[2019-08-22] MEDS ORDERED: ALBU2.5V5 NEB (00:03)
[2019-08-22] MEDS ORDERED: LACT1CAP21 PO (00:10)
[2019-08-22] MEDS ORDERED: MAGN2400 PO (00:12)
[2019-08-22] MEDS ORDERED: MAG30ORA2 PO (00:14)
[2019-08-22] MEDS ORDERED: MELA3TAB56 PO (00:15)
[2019-08-22] MEDS ORDERED: MIRT15TA PO (00:17)
[2019-08-22] MEDS ORDERED: PANT40TA5 PO (00:20)
[2019-08-22] MEDS ORDERED: QUET25TA5 PO ×2 (00:22→00:24)
[2019-08-22] MEDS ORDERED: RIVA1PAT23 TP (00:25)
[2019-08-22] MEDS ORDERED: TRAZ-120 PO ×2 (00:27)
--- NOTE | 2019-08-22 02:29 | PN ---
DATE: 08/19/2019 PSYCHIATRIC PROGRESS NOTE This late entry 08/19/2019 covers elements not covered in my initial note. SUBJECTIVE: I met with the patient evening of 08/19/2019. The patient slept 7-1/4 hours previous night. Per Marissa MORFIN, the patient has been confused, but redirectable. REVIEW OF SYSTEMS: Ambulation impaired, in a wheelchair. No CV, , pulmonary, eye, ENT system symptoms on review. Reliability poor. MENTAL STATUS EXAM: Oriented to himself. Insight, judgment, recent and remote memory, attention, concentration, fund of knowledge poor, consistent with his diagnosis mentioned in my initial note. PLAN: No change from initial note. MAN Tegan VALLES MD DR: STEVE/eva JOB#: [id number] / [id number]
--- NOTE | 2019-08-22 02:31 | PN ---
DATE: 08/20/2019 PSYCHIATRIC PROGRESS NOTE This late entry 08/20/2019 covers elements not covered in my initial note. SUBJECTIVE: I met with the patient in the evening. The patient slept 8-3/4 hours previous night. He remains confused, is on antibiotics for his UTI. Complains of some pain and hard of hearing. REVIEW OF SYSTEMS: Remains in wheelchair. No CV, , pulmonary, eye system symptoms on review. MENTAL STATUS EXAM: Oriented to himself. Insight, judgment, recent and remote memory, attention, concentration, fund of knowledge poor, consistent with his diagnosis mentioned in my initial note. PLAN: No change from initial note. MAN Tegan VALLES MD DR: STEVE/eva JOB#: [id number] / [id number]
[2019-08-22 06:00] VITALS: BP 145/72
[2019-08-22 07:58] LABS: BASO # 0.1 x10^3/uL (0.0-0.2); BASO % 1 % (0-3); EOS # 0.2 x10^3/uL (0.0-0.7); EOS % 2 % (0-3); HEMATOCRIT 27.9 % (39.0-53.0); HEMOGLOBIN 9.1 g/dL (13.0-17.5); LYMPH # 0.7 x10^3/uL (1.0-4.8); LYMPH % 8 % (24-48); MEAN CORPUSCULAR HEMOGLOBIN 28 pg (25-35); MEAN CORPUSCULAR HGB CONC 33 g/dL (31-37); MEAN CORPUSCULAR VOLUME 87 fL (79-100); MONO # 0.8 x10^3/uL (0.0-1.1); MONO % 8 % (0-9); NEUT # 7.8 x10^3uL (1.8-7.7); NEUT % 82 % (31-73); PLATELET COUNT 351 x10^3/uL (140-400); RED BLOOD COUNT 3.21 x10^6/uL (4.30-5.70); RED CELL DISTRIBUTION WIDTH 14.2 % (11.5-14.5); WHITE BLOOD COUNT 9.6 x10^3/uL (4.0-11.0)
[2019-08-22 08:04] LABS: ALBUMIN/GLOBULIN RATIO 0.5 (1.0-1.7); CALCIUM 8.7 mg/dL (8.5-10.1); CREATININE 1.1 mg/dL (0.7-1.3); GFR 64.1; MAGNESIUM 1.7 mg/dL (1.8-2.4); POTASSIUM 4.2 mmol/L (3.5-5.1); TOTAL BILIRUBIN 0.2 mg/dL (0.2-1.0); TOTAL PROTEIN 5.8 g/dL (6.4-8.2)
[2019-08-22] MEDS: MULTIVITAMIN with MINERAL TABLET. PO SCH (09:35)
[2019-08-22] MEDS: ASPIRIN 325 MG TABLET PO SCH (09:35)
[2019-08-22] MEDS: LACTOBACILLUS RHAMNOSUS GG 1 CAPSULE. PO SCH (09:35)
[2019-08-22] MEDS: SUCRALFATE 1 GM TABLET. PO SCH (09:35)
[2019-08-22] MEDS: CARBIDOPA/LEVODOPA 25/100MG TABLET PO SCH (09:35)
[2019-08-22 09:36] VITALS: BP 145/72
[2019-08-22] MEDS: RIVASTIGMINE 9.5MG PATCH. TD SCH (09:36)
[2019-08-22] MEDS: METOPROLOL TART IMMED RELEASE 25 MG TABLET PO SCH (09:36)
[2019-08-22] MEDS: levETIRAcetam 500 MG TABLET PO SCH (09:36)
[2019-08-22] MEDS: BUDESONIDE 3 MG CAP.ER.24H. PO SCH (09:36)
[2019-08-22] MEDS: CALCIUM CARB/VIT D3 500/200 TABLET PO SCH (09:36)
[2019-08-22] MEDS: CITALOPRAM 20 MG TABLET. PO SCH (09:36)
[2019-08-22] MEDS: PANTOPRAZOLE 40 MG TABLET. PO SCH (09:37)
[2019-08-22] MEDS: GLUCOSAMINE 500 MG CAPSULE PO SCH (09:37)
[2019-08-22] MEDS: QUEtiapine 25 MG TABLET. PO SCH (09:37)
[2019-08-22] MEDS: BUDESONIDE 0.5 MG/2 ML NEBU NEB SCH (10:11)
--- NOTE | 2019-08-22 20:45 | PDOC ---
Exam Note: Anjel Note: Please also refer to the separate dictated note~for this date of service dictated separately.~Patient seen individually. Discussed the patient with Nursing staff reviewed the chart.~Reviewed interim history and current functioning. Reviewed vital signs,~Labs/ Radiology~and current medications noted below. Continue current treatment with the changes noted in the dictated addendum note Assessment: Vital Signs/I&O: Vital Signs Date Time Temp Pulse Resp B/P (MAP) Pulse Ox O2 Delivery O2 Flow Rate FiO2 08/22/19 09:36 73 145/72 08/22/19 06:00 98.6 18 94 08/21/19 20:18 Room Air I & O 08/21/19 08/21/19 08/22/19 15:00 23:00 07:00 Intake Total 600 ml 360 ml Output Total 1100 ml 650 ml Balance 600 ml -740 ml -650 ml Labs: Laboratory Tests Test 08/22/19 07:21 White Blood Count 9.6 x10^3/uL (4.0-11.0) Red Blood Count 3.21 x10^6/uL (4.30-5.70) L Hemoglobin 9.1 g/dL (13.0-17.5) L Hematocrit 27.9 % (39.0-53.0) L Mean Corpuscular Volume 87 fL (79-100) Mean Corpuscular Hemoglobin 28 pg (25-35) Mean Corpuscular Hemoglobin Concent 33 g/dL (31-37) Red Cell Distribution Width 14.2 % (11.5-14.5) Platelet Count 351 x10^3/uL (140-400) Neutrophils (%) (Auto) 82 % (31-73) H Lymphocytes (%) (Auto) 8 % (24-48) L Monocytes (%) (Auto) 8 % (0-9) Eosinophils (%) (Auto) 2 % (0-3) Basophils (%) (Auto) 1 % (0-3) Neutrophils # (Auto) 7.8 x10^3uL (1.8-7.7) H Lymphocytes # (Auto) 0.7 x10^3/uL (1.0-4.8) L Monocytes # (Auto) 0.8 x10^3/uL (0.0-1.1) Eosinophils # (Auto) 0.2 x10^3/uL (0.0-0.7) Basophils # (Auto) 0.1 x10^3/uL (0.0-0.2) Sodium Level 142 mmol/L (136-145) Potassium Level 4.2 mmol/L (3.5-5.1) Chloride Level 105 mmol/L (98-107) Carbon Dioxide Level 34 mmol/L (21-32) H Anion Gap 3 (6-14) L Blood Urea Nitrogen 24 mg/dL (8-26) Creatinine 1.1 mg/dL (0.7-1.3) Estimated GFR (Cockcroft-Gault) 64.1 BUN/Creatinine Ratio 22 (6-20) H Glucose Level 88 mg/dL (70-99) Calcium Level 8.7 mg/dL (8.5-10.1) Magnesium Level 1.7 mg/dL (1.8-2.4) L Total Bilirubin 0.2 mg/dL (0.2-1.0) Aspartate Amino Transferase (AST) 14 U/L (15-37) L Alanine Aminotransferase (ALT) 15 U/L (16-63) L Alkaline Phosphatase 79 U/L (46-116) Total Protein 5.8 g/dL (6.4-8.2) L Albumin 2.0 g/dL (3.4-5.0) L Albumin/Globulin Ratio 0.5 (1.0-1.7) L Current Medications: I have reviewed the current psychotropics carefully including drug interactions. Risk benefit ratio favors no change other than as noted in my dictated progress note. 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
--- NOTE | 2019-08-23 18:03 | DS ---
DATE OF DISCHARGE: 08/22/2019 This late entry 08/22/2019 covers elements not covered in my initial note. REASON FOR ADMISSION: Please refer to the admission history for details. Briefly, the patient is an 84-year-old male referred to us from [facility] by his primary care physician on account of being verbally abusive, combative and grabbing at staff, cursing, refusing cares, agitated. This is within the context of his significant dementia and being hard of hearing. He had failed outpatient psychiatric interventions. Behaviors were deemed dangerous, unmanageable. Having failed outpatient psychiatric interventions, he was referred for inpatient psychiatric stabilization. SIGNIFICANT FINDINGS AND CLINICAL COURSE: Following admission, the patient was seen daily individually by myself from a psychiatric standpoint, medical followup with Dr. Smallwood. The patient was quite confused, did have a UTI, which was treated and seemed to help somewhat with the agitation. Being hard of hearing further complicated his presentation and reactions. Adjustments were made in his psychotropics. He seemed to respond to a combination of Celexa 20 mg a day, Remeron 15 mg at bedtime, Seroquel 12.5 mg [id number], Exelon patch 9.5 mg a day. Trazodone 50 mg at bedtime, may repeat x 1 for insomnia; melatonin 3 mg at bedtime; Zyprexa, scheduled 5 mg at bedtime plus p.r.n. He was on 2 atypical antipsychotics at discharge, Seroquel and Zyprexa, and I would suggest that starting in about 45 days from discharge if he is stable, the Zyprexa could be reduced down to 2.5 mg at bedtime for a month and then stopped, but I will leave the final decision for this to treating provider at that time. REVIEW OF SYSTEMS: Prior to discharge on 08/22/2019, ambulation impaired, in wheelchair. No CV, , pulmonary, eye, ENT system symptoms on review. Reliability poor. MENTAL STATUS EXAM: Oriented to himself. Insight, judgment, recent and remote memory, attention, concentration, fund of knowledge poor, consistent with his diagnosis. FINAL DIAGNOSES: Major neurocognitive disorder, Alzheimer, vascular with delusion, depression, behavioral disturbance; anxiety disorder, unspecified; impulse control disorder, unspecified; status post urinary tract infection. Hard of hearing. Rest unchanged from admission. DISCHARGE MEDICATIONS: Please refer to the MRAD. DISCHARGE INSTRUCTIONS: Outpatient psychiatric and medical followup at the intermediate. Time for discharge day management greater than 30 minutes. ANEL VALLES MD DR: STEVE/eva JOB#: [id number] / [id number]
--- NOTE | 2019-08-24 00:44 | PN ---
DATE: 08/21/2019 PSYCHIATRIC PROGRESS NOTE This late entry 08/21/2019 covers the elements not covered in my initial note. SUBJECTIVE: I met with the patient in the evening of 08/21/2019. Per NAVJOT Mccullough, the patient slept 8-1/4 hours previous night. He remains confused, but not aggressive, not combative, though he gets agitated with cares at times, does redirect. REVIEW OF SYSTEMS: No CV, , pulmonary, eye, ENT system symptoms on review. Reliability is poor. MENTAL STATUS EXAM: Oriented to himself. Insight, judgment, recent and remote memory, attention, concentration, fund of knowledge poor, consistent with his diagnosis mentioned in my initial note. PLAN: No change from initial note. MAN Tegan VALLES MD DR: STEVE/eva JOB#: [id number] / [id number]
== END 2019-08-22 10:45 | DRG 56 ==
LOC: ER 17:36 → GEROPSY 19:41
PROVIDERS: ADMIT Psychiatry & Neurology Psychiatry; ATTEND Psychiatry & Neurology Psychiatry
DX: G20 Parkinson's disease (principal); E43 Unspecified severe protein-calorie malnutrition; F01.51 Vascular dementia, unspecified severity, with behavioral disturbance; F02.81 Dementia in other diseases classified elsewhere, unspecified severity, with behavioral disturbance; N39.0 Urinary tract infection, site not specified; G30.9 Alzheimer's disease, unspecified; F02.80 Dementia in other diseases classified elsewhere, unspecified severity, without behavioral disturbance, psychotic disturbance, mood disturbance, and anxiety; F63.9 Impulse disorder, unspecified; S90.31XA Contusion of right foot, initial encounter; R13.10 Dysphagia, unspecified; K59.00 Constipation, unspecified; K21.9 Gastro-esophageal reflux disease without esophagitis; J43.9 Emphysema, unspecified; I10 Essential (primary) hypertension; E78.5 Hyperlipidemia, unspecified; X58.XXXA Exposure to other specified factors, initial encounter; H91.90 Unspecified hearing loss, unspecified ear; E86.0 Dehydration; F32.9 Major depressive disorder, single episode, unspecified; F41.1 Generalized anxiety disorder; I25.10 Atherosclerotic heart disease of native coronary artery without angina pectoris; Y93.89 Activity, other specified; Y92.89 Other specified places as the place of occurrence of the external cause; Y99.8 Other external cause status; Z88.8 Allergy status to other drugs, medicaments and biological substances; Z79.899 Other long term (current) drug therapy; Z91.81 History of falling; Z68.20 Body mass index [BMI] 20.0-20.9, adult
CPT/HCPCS: 36415; 70450; 71045; 71275; 73630; 78306; 80053; 80061; 81001; 82306; 83036; 83540; 83550; 83605; 83735; 84436; 84443; 84480; 85025; 86592; 87086; 87186; 93005; 93970; 94640; 94760; A9503; J7613; J7626; Q9967; 97116; 99285-25